=== PATIENT | male | born 1960 | race Caucasian/White ===

== ENCOUNTER → 2025-02-14 07:26 | Outpatient (REF) | payer BC, SELFPAY ==
[2025-02-14 08:21] LABS: % Basophils 0.3 % (0-2); % Eosinophils 3.1 % (0-6); % Immature Granulocytes 0.2 % (0-0.5); % Lymphocytes 15.9 % (20.5-51.1); % Monocytes 9.1 % (1.7-9.3); % Neutrophils 71.4 % (42.2-75.2); Absolute Eosinophils 0.3 10^3/uL (0-0.7); Absolute Lymphocytes 1.4 10^3/uL (1.2-3.4); Absolute Monocytes 0.8 10^3/uL (0.1-0.6); Absolute Neutrophils 6.4 10^3/uL (1.4-6.5); Hematocrit 46.7 % (39.0-52.0); Hemoglobin 16.2 g/dL (13.0-18.0); Mean Corp Hgb Conc. 34.7 g/dL (33.0-37.0); Mean Corpuscular Hgb 32.5 pg (27.0-31.0); Mean Corpuscular Volume 93.8 fL (80.0-94.0); Mean Platelet Volume 9.5 fL (7.4-10.4); Nucleated Red Blood Cells % 0 % (-); Platelet Count 217 10^3/uL (130-400); Red Blood Cell Count 4.98 10^6/uL (4.70-6.10); Red Cell Dist. Width 11.8 % (11.5-14.5)
[2025-02-14 08:52] LABS: Blood Urea Nitrogen 31 mg/dl (9-20); Calcium 9.6 mg/dl (8.4-10.2); Carbon Dioxide 24 mmol/L (22-30); Chloride 109 mmol/L (98-107); Glucose 104 mg/dl (70-99); Potassium 4.7 mmol/L (3.5-5.1); Sodium 141 mmol/L (135-145); eGFR > 60.00
== END ==
LOC: RCS 07:26
PROVIDERS: ATTENDING PHYSICIAN Orthopaedic Surgery; FAMILY PHYSICIAN Family Medicine
DX: Z01.818 Encounter for other preprocedural examination (principal)
CPT/HCPCS: 36415; 80048; 85025; 93005

== ENCOUNTER 2025-03-21 21:19 | Inpatient (IN) | payer BC, SELFPAY ==
[2025-03-21 14:49] VITALS: BP 121/73
--- NOTE | 2025-03-21 17:54 | ED.GENMED ---
History of Present Illness
General
Chief Complaint: Abdominal Symptoms
Source: patient and spouse
Time Seen by Provider: 03/21/25 17:46
History of Present Illness
History of Present Illness:
65-year-old male with past medical history of recent right total hip replacement this past Sunday with Dr. Alcaraz presenting to the emergency department for evaluation of generalized abdominal discomfort, bloating, belching and distention that has
been gradually worsening over the last 48 hours. Patient had initially been on oxycodone for pain control but stopped taking this on Sunday but notes he had been using MiraLAX to prevent constipation. Patient states he has passed a few small
stools but none really since Sunday. He denies any fevers, chills, rigors, vomiting, urinary symptoms or any other concerns. No known history of abdominal or GI pathology. No surgical history on his abdomen.
Past History
Past History
ED Past Medical History: None
ED Past Surgical History: Orthopedic
Social History
Tobacco: Non-smoker
Alcohol: Occasional
Drug: None
Personal:
Living: with family
Employment: Employed
Review of Systems
Review of Systems
All Other Systems: ROS reviewed and negative except as documented in HPI and ROS
Phy Exam
Physical Exam
Physical Exam:
GENERAL: Alert , in no apparent distress but does appear uncomfortable
EYE: clear conjunctiva b/l
HEAD: NCAT
ENT: o/p clr, mmm.
CARDIAC: Regular rate and rhythm .
LUNGS: Clear breath sounds bilaterally, no acute respiratory distress, no wheezes/rales/rhonchi
ABDOMEN: Firm, distended, no focal tenderness but there is generalized tenderness throughout the entirety of the abdomen, more hypoactive bowel sounds, no r/g, no cvat
NEUROLOGICAL: Alert and oriented
SKIN: Warm and dry, skin intact.
MUSCULOSKELETAL: No edema, well perfused.
PSYCH: Normal and appropriate interaction.
Scores
Heart Failure Risk
Heart Failure Risk Score: Not Applicable
Heart Score for Chest Pain Patients
STEMI patient?: Not applicable
Withdrawal Assessment of Alcohol
Withdrawal Assessment Completed?: Not applicable
Course
Orders/Labs/Results
Orders:
Orders
03/21/25 17:53
CT Abd/pelvis W Iv Cont Urgent
Comment:
Reason For Exam: generalized abd pain/bloating, recent right THR
03/21/25 18:24
Complete Blood Count/With Diff Urgent
Comprehensive Metabolic Panel Urgent
Lipase Urgent
Magnesium Urgent
Comment: ADD ON
03/21/25 18:56
0.9% Sodium Chloride 1000 ml [Nss] 1,000 ml IV BOLUS
HYDROmorphone [Dilaudid] 0.5 mg IV NOW STA
03/21/25 20:53
Urinalysis Reflex To Culture Urgent
Date Specimen was Collected: 03/21/25
Time Specimen was Collected: 18:17
Abnormal Lab Results
03/21/25
18:24
WBC 12.7 H 10^3/uL
(4.8-10.8)
RBC 4.66 L 10^6/uL
(4.70-6.10)
MCH 32.8 H pg
(27.0-31.0)
Abs Immat Gran (auto) 0.1 H 10^3/uL
(0-0.05)
Absolute Neuts (auto) 9.6 H 10^3/uL
(1.4-6.5)
Absolute Monos (auto) 1.1 H 10^3/uL
(0.1-0.6)
Immature Gran % 0.7 H %
(0-0.5)
Neutrophils % 75.4 H %
(42.2-75.2)
Lymphocytes % 14.2 L %
(20.5-51.1)
BUN 30 H mg/dl
(9-20)
Lipase 1972 H* U/L
(23-300)
03/21/25 18:24
03/21/25 18:24
Vital Signs
Initial and Last Documented VS:
Initial Vital Signs
Temp Pulse Resp BP Pulse Ox
98.0 F 70 18 121/73 99
03/21/25 14:49 03/21/25 14:49 03/21/25 14:49 03/21/25 14:49 03/21/25 14:49
Last Documented Vital Signs
Temp Pulse Resp BP Pulse Ox
97.6 F 59 27 136/71 100
03/21/25 18:31 03/21/25 18:45 03/21/25 18:45 03/21/25 18:31 03/21/25 18:45
MDM/Problems Addressed
Differential Diagnosis Includes:
Constipation secondary to recent surgery/opiates for pain control, bowel obstruction, diverticulitis, appendicitis, other acute surgical abdomen
MDM/Problems Addressed:
65-year-old male presenting to the ER for evaluation of generalized abdominal discomfort, bloating and difficulty passing stool over the last 48 hours. Patient's abdomen is firm and distended. He does appear uncomfortable. Will check labs, CT
imaging. Patient declining any medications at this time. Disposition pending.
*Radiology
Radiology exam reviewed: radiology read reviewed
*Pulse Oximetry
Patient hypoxic: no
*Critical Care Note
Total Time (30-74mins, 75-104mins- exclusive of procedures): Not Applicable
Comment
Comment:
6:45 PM: Patient's lipase severely elevated at over 1900. I went to reassess the patient and discussed these results with him and patient noted he was really starting to feel uncomfortable in his abdomen. I reviewed these results and discussed
with patient possibilities of causes of pancreatitis. Will treat with Dilaudid for pain control and start IV fluids. Pending CT scan. Patient to be admitted.
Patient Management
Discussion with other providers: Hospitalist
Escalation/DeEscalation of care consider admission/obs:
CT scan shows the following:
IMPRESSION: Diffuse thickening and increased enhancement of the wall the duodenum from the duodenal bulb or the mid third portion, as well as stranding of the adjacent fat. Findings are felt to likely represent duodenitis. See above discussion.
Large obstructing left ureteropelvic junction calculus with left pelvicalyceal dilation and delay in excretion of contrast. 4 mm nephrolith within the posterior lower pole of the left kidney.
Central parapelvic cysts involving the right kidney. No evidence for right ureteral calculus.
Colonic diverticula with no CT evidence for diverticulitis.
Hospitalist team was notified and accepts for continued evaluation and treatment. They will consult with urology as needed but I do suspect patient's symptoms are more likely related to the pancreatitis/duodenitis seen on CT scan.
ED Attending Note
-
Portions of this chart may have been created with voice recognition software.� Occasional wrong word or��sound alike� substitutions may have occurred due to the inherent limitations of voice recognition software.
Discharge Plan
Departure
Patient Disposition: Admit
Date of Disposition: 03/21/25
Time of Disposition: 20:06
Presentation/result/management discussed w/ accepting MD/DO: Hospitalist
Discharge Problem:
Acute pancreatitis, Obstruction of left ureteropelvic junction (UPJ) due to stone
Prescriptions:
No Action
acetaminophen [Tylenol] 325 mg Tablet
650 mg PO Q6HPRN PRN (Reason: mild pain)
polyethylene glycol 3350 [Miralax] 17 gram Powder In Packet
17 g PO BID
aspirin 325 mg Tablet
325 mg PO DAILY
Rx Instructions:
for 30 days starting 03.16.25
magnesium hydroxide [Milk of Magnesia] 400 mg/5 mL Suspension
1,200 mg PO DAILYPRN PRN (Reason: constipation)
celecoxib [Celebrex] 100 mg Capsule
100 mg PO BID
Gas-X 250 mg Capsule
250 mg PO BIDPRN PRN (Reason: gas pains)
Referrals:
Florian Medina MD [Family Provider] -
Interventions
Interventions:
*Risk Screen - Suicide Last Done: 03/21/25 18:31
*General Assessment Last Done: 03/21/25 14:49
*Neglect/Abuse Screening Last Done: 03/21/25 18:31
*ED- Fall Risk Assessment Last Done: 03/21/25 18:31
*ED COVID-19 Vaccine History Last Done: 03/21/25 14:49
AZ-Qojqbd-Uqdidycula Assessment Last Done: 03/21/25 18:31
Discharge Date and Time
Print Language: AMHARIC
[2025-03-21 18:25] VITALS: BMI 29.0
[2025-03-21 18:29] LABS: % Basophils 0.2 % (0-2); % Eosinophils 0.5 % (0-6); % Immature Granulocytes 0.7 % (0-0.5); % Lymphocytes 14.2 % (20.5-51.1); % Neutrophils 75.4 % (42.2-75.2); Absolute Eosinophils 0.1 10^3/uL (0-0.7); Absolute Immature Granulocytes 0.1 10^3/uL (0-0.05); Absolute Lymphocytes 1.8 10^3/uL (1.2-3.4); Absolute Monocytes 1.1 10^3/uL (0.1-0.6); Absolute Neutrophils 9.6 10^3/uL (1.4-6.5); Hematocrit 42.4 % (39.0-52.0); Hemoglobin 15.3 g/dL (13.0-18.0); Mean Corp Hgb Conc. 36.1 g/dL (33.0-37.0); Mean Corpuscular Hgb 32.8 pg (27.0-31.0); Mean Platelet Volume 9.5 fL (7.4-10.4); Nucleated Red Blood Cells % 0 % (-); Platelet Count 210 10^3/uL (130-400); Red Blood Cell Count 4.66 10^6/uL (4.70-6.10); White Blood Cell Count 12.7 10^3/uL (4.8-10.8)
[2025-03-21 18:31] VITALS: BP 136/71
[2025-03-21 18:51] LABS: ALT (SGPT) 33 U/L (0-50); AST (SGOT) 26 U/L (17-59); Albumin 3.7 g/dl (3.5-5.0); Alkaline Phosphatase 56 U/L (38-126); Blood Urea Nitrogen 30 mg/dl (9-20); Calcium 9.1 mg/dl (8.4-10.2); Carbon Dioxide 26 mmol/L (22-30); Chloride 107 mmol/L (98-107); Estimated Creatinine Clearance 78 ml/min; Glucose 98 mg/dl (70-99); Lipase 1972 U/L (23-300); Potassium 3.8 mmol/L (3.5-5.1); Sodium 138 mmol/L (135-145); Total Bilirubin 1.1 mg/dl (0.2-1.3); Total Protein 6.4 g/dl (6.3-8.2); eGFR > 60.00
[2025-03-21 19:18] VITALS: BP 145/81
--- NOTE | 2025-03-21 19:30 | EDRN ---
Report received, introduced myself to patient once back from CT, patient needing to use restroom, ambulated into bathroom to use commode back in bed and medicated for pain.
[2025-03-21] MEDS: DILAUDID 0.5 MG IV ×2 (19:38→23:15)
[2025-03-21] MEDS: NSS 1000 IV (19:39)
[2025-03-21 20:00] VITALS: BP 130/85
[2025-03-21 20:34] LABS: Magnesium 2.2 mg/dl (1.6-2.3)
--- NOTE | 2025-03-21 20:42 | HPS.HSE ---
Family Physician
-
Family Physician: Florian Medina
Chief Complaint
-
Abdominal pain
History of Present Illness
This is a 65-year-old with history of status post total hip arthroplasty postop day #5 who presents to the emergency department with abdominal pain and bloating.
Patient underwent right total hip arthroplasty Eric 5 days ago. There was no complication. Status post procedure the patient reported that he was unable to tolerate p.o. but then developed some nausea and a feeling of abdominal distention and
gas and bloating. He reported that he had some tenderness that is worse with movement and is starting to radiate to the back today. Denies any vomiting. He denies any changes in his bowel call or and he denies any hematochezia.
Patient denies any flank pain. He denies any dysuria or hematuria. He denies having any fevers or chills.
Patient reported that since the procedure he has been taking 325 of aspirin daily as well as Celebrex twice daily. He has since stopped taking oxycodone several days ago. Patient reports history of alcohol use drinking whiskey daily. He stated
that he stopped alcohol about 2 weeks ago due to his upcoming surgery. He denies having any withdrawal symptoms and no history of withdrawal.
Patient denies history of gallstones. He denies history of prior pancreatitis.
In the emergency department he was afebrile, blood pressure was 156/71 with a pulse of 59 and was satting 98% on room air. His CBC shows a white count of 12.7 but otherwise unremarkable. Electrolytes were all within normal limits. BUN and
creatinine were normal. His LFTs were normal. Lipase was elevated at 1972. UA is pending.
A CT of the abdomen pelvis showed diffuse thickening and increased enhancement of the wall of the duodenum from the bulb to the midportion as well as stranding of the adjacent fat. He also has a large obstructing left ureteropelvic junction
calculus with left pelvicalyceal dilation and delayed extrusion of contrast. There is also a 4 mm nephrolith within the posterior lower pole of the left kidney.
Medical History
Past Medical History
Past Medical History: Reports None
Past Surgical History: Reports Orthopedic (Right total hip arthroplasty 03/16/2025)
Social History
Tobacco: Non-smoker
Alcohol: Daily (Last drink was 2 weeks ago)
Drug: None
Personal:
Living: With Family
Family History
Family History: Not pertinent
Allergies / Home Medications
Allergies reflects when Allergies were last updated in [employer].
Home Medications with original date entered in [facility]
Allergy/Medication List:
Allergies
Allergy/AdvReac Type Severity Reaction Status Date / Time
No Known Allergies Allergy Verified 03/21/25 14:48
Home Medications
acetaminophen 325 mg tablet (Tylenol) 650 mg PO Q6HPRN PRN mild pain 03/21/25
aspirin 325 mg tablet 325 mg PO DAILY 03/21/25
celecoxib 100 mg capsule (Celebrex) 100 mg PO BID 03/21/25
magnesium hydroxide 400 mg/5 mL oral suspension (Milk of Magnesia) 1,200 mg PO DAILYPRN PRN constipation 03/21/25
polyethylene glycol 3350 17 gram oral powder packet (Miralax) 17 g PO BID 03/21/25
simethicone 250 mg capsule (Gas-X) 250 mg PO BIDPRN PRN gas pains 03/21/25
Review of Systems
-
Constitutional: Reports No Symptoms
EENT: Reports No Symptoms
Respiratory: Reports No Symptoms
Cardiac: Reports No Symptoms
Abdomen/GI: Reports Abdominal Pain and Constipated
: Reports No Symptoms
Musculoskeletal: Reports No Symptoms
Skin: Reports No Symptoms
Neurological: Reports No Symptoms
Endocrine: Reports No Symptoms
Hematologic/Lymphatic: Reports No Symptoms
Psych: Reports No Symptoms
Physical Exam
Vital Signs
Vital Signs
Temp Pulse Resp BP Pulse Ox
97.6 F 59 27 136/71 100
03/21/25 18:31 03/21/25 18:45 03/21/25 18:45 03/21/25 18:31 03/21/25 18:45
Physical Exam
General: Well Developed, Well Nourished, No Apparent Distress and Comfortable
HEENT: NormoCephalic, Anicteric and Moist mucous membranes
Respiratory: Clear
Cardiac: S1/S2 and Regular Rhythm
Breast: Deferred by me
GI: Non Distended, Normal Bowel Sounds and Tender
Rectal: Deferred by Provider
Genito-urinary: Deferred by me
Musculoskeletal: No Clubbing, No Cyanosis and No Edema
Skin: Warm
Neuro: AO x 3 and Nonfocal/grossly intact
Hematologic/Lymphatic: No Lymphadenopathy
Laboratory Results
-
03/21/25 18:24
03/21/25 18:24
Laboratory Results
Total Bilirubin 1.1 mg/dl (0.2-1.3) 03/21/25 18:24
AST 26 U/L (17-59) 03/21/25 18:24
ALT 33 U/L (0-50) 03/21/25 18:24
Alkaline Phosphatase 56 U/L (38-126) 03/21/25 18:24
Lipase 1972 U/L (23-300) H* 03/21/25 18:24
Data Reviewed
-
CT Scan: Report Reviewed by me
Lab Data: Labs Reviewed by me
Old Records: Reviewed
Impression/Plan
-
IMPRESSION:
65 y.o POD 5 s/p R JACLYN presenting with abdominal pain and found to have pancreatitis on labs with elevated lipase of 1950. CT scan shows no complication of pancreatitis. There was no gall-stone or biliary dilation mentioned. The liver enzymes
were normal. Significant thickening and enhancement of the wall of the duodenum as well as stranding of the adjacent fat likely representing duodenitis. HD stable and afebrile.
PLAN:
1. Pancreatitis - H/O etoh use but not recently. No gall stones, normal lfts and nor biliary ductal dilation to suggest galls tone pancreatitis. Question about contigous spread of inflammation from duodenitis to pancreas. Well appearing,
non-toxic and stable.
- admit to med/surg
- npo with sips of clears and ice chips
- IV fluids with LR at 150ml/hr
- pain control and antiemetics
- given lack of etiology and possible role of duodenitis will consult GI
2. Duodenitis - Suspect secondary to ASA 325 + LEVINE II inh with underlying etoh use. No obvious bleeding or ulcer.
- NPO as above
- PPI IV bid for now
- will hold asa 325, and use lovenox for dvt ppx while in patient
- hold levine II inhibition for now
- GI consult
3. s/p JACLYN - stable.
4. Left obstructing kidney stone - Per CT scan large stone in left upj 6x6x11 with delay in excretion of contrast. No flank pain. No groin pain, no fevers or chills. Suspect chronically obstructing stone.
- u/a pending
- d/w urology and willing to see him inpatient
- surgery will not be offered and tamsulosin without value.
DVT PPX - lovenox sq
Code status - Full Code
[2025-03-21 21:00] VITALS: BP 140/80
[2025-03-21] MEDS: PROTONIX IV 40 MG IV (21:24)
[2025-03-21] MEDS: NSS (PRESERVATIVE FREE) 10 ML IV (21:24)
[2025-03-21 21:43] LABS: Urine Albumin 1+ (Neg - Trace); Urine Bilirubin Negative (Negative); Urine Character Clear (Clear); Urine Color Yellow; Urine Glucose Negative (Negative); Urine Ketone 2+ (Negative); Urine Leukocyte Negative (Negative); Urine Nitrite Negative (Negative); Urine Occult Blood 1+ (Negative); Urine Specific Gravity 1.015 (<1.030); Urine Urobilinogen Negative (Neg - 1+)
[2025-03-21 21:54] LABS: Urine Squamous Cell 0-2 /LPF (Few)
[2025-03-21 21:55] LABS: Urine White Cell 0-2 /HPF (0-5)
[2025-03-21 22:26] VITALS: BP 158/81; BMI 28.4
[2025-03-21] MEDS: LR 1000 IV (23:23)
[2025-03-22] MEDS: DILAUDID 0.5 MG IV ×4 (03:17→23:21)
[2025-03-22] MEDS: LR 1000 IV ×3 (05:28→23:21)
[2025-03-22 07:09] LABS: Hematocrit 40.9 % (39.0-52.0); Hemoglobin 14.3 g/dL (13.0-18.0); Mean Corpuscular Volume 94.5 fL (80.0-94.0); Platelet Count 205 10^3/uL (130-400); Red Blood Cell Count 4.33 10^6/uL (4.70-6.10); Red Cell Dist. Width 12.1 % (11.5-14.5); White Blood Cell Count 11.6 10^3/uL (4.8-10.8)
--- NOTE | 2025-03-22 07:32 | CON.GI ---
Consultation
-
Date/Time Consultation Requested: 03/22/25
Date/Time Consultation Performed: 03/22/25
Requesting Provider:
Performing Provider:
Reason for Consultation: Abdominal discomfort, bloating
Medical History
Chief Complaint / HPI
Chief Complaint: Abdominal bloating
History of Present Illness:
65-year-old male who underwent total right hip replacement last Sunday presenting with complaints of abdominal discomfort, bloating going on in the last couple of days. As per patient, he had no prior history of GI symptoms, no history of acid
reflux, no PPI use, occasional constipation taking MiraLAX but otherwise has regular bowel movements. After his right hip replacement last Sunday, he took oxycodone and MiraLAX to prevent constipation, he took oxycodone again on Sunday every 6
hours and stopped. In the last couple of days he reports that he feels sensation of bloating, uncomfortable sensation in the upper abdomen with some belching and gassiness. No abdominal pain, nausea or vomiting. No heartburn or trouble
swallowing. He did have a bowel movement yesterday but not this morning. Prior to surgery, he took Aleve maybe 2 tablets a week but not on a regular basis. He is on aspirin 325 mg and he was also put on steroids, he does not recall what exactly
is the medication he took. He has been taking Celebrex 1 tablet twice a day since after surgery. No previous history of ulcer disease. No history of pancreatitis. In the emergency room, mild leukocytosis noted with white count of 12.7, BUN
slightly elevated at 30 with normal creatinine and lipase noted to be 1972. CT scan of the abdomen pelvis with IV contrast only showed diffuse thickening and increased enhancement of wall of the duodenum from the bulb through the mid third portion,
significant stranding of surrounding fat noted suggesting duodenitis, no evidence of pancreatitis noted. No gallstones. Also noted was an obstructing left ureteropelvic junction calculus with moderate to severe distention of the left renal pelvis
and calyces.
Colonoscopy in [address] Acuna for adenomatous polyps, diverticulosis noted.
Colonoscopy in 2012 showing tubular adenomas in the transverse colon, descending colon and sigmoid colon.
Past Medical History
Past Medical History: None
Past Surgical History: Orthopedic (Right hip replacement.)
Social History
Tobacco: Non-Smoker
Alcohol: Daily
Family History
Family History: Reviewed & Not Pertinent
Allergies / Home Medications
Allergy/AdvReac Type Severity Reaction Status Date / Time
No Known Allergies Allergy Verified 03/21/25 14:48
�Medication �Instructions �Recorded
acetaminophen 325 mg tablet 650 mg PO Q6HPRN PRN mild pain 03/21/25
(Tylenol)
aspirin 325 mg tablet 325 mg PO DAILY 03/21/25
celecoxib 100 mg capsule (Celebrex) 100 mg PO BID 03/21/25
magnesium hydroxide 400 mg/5 mL 1,200 mg PO DAILYPRN PRN 03/21/25
oral suspension (Milk of Magnesia) constipation
polyethylene glycol 3350 17 gram 17 g PO BID 03/21/25
oral powder packet (Miralax)
simethicone 250 mg capsule (Gas-X) 250 mg PO BIDPRN PRN gas pains 03/21/25
Review of Systems
-
All other systems: A 12 pt ROS was Negative except as stated above in HPI
Vital Signs
Temp Pulse Resp BP Pulse Ox
98.1 F 74 18 158/81 97
03/21/25 22:26 03/21/25 22:26 03/21/25 22:26 03/21/25 22:26 03/21/25 22:26
Physical Exam
Exam
Respiratory: Clear
Cardiac: S1/S2 and Regular Rhythm
GI: Soft and Non Distended (Some discomfort on palpation in the mid/upper abdomen, bowel sounds decreased.)
Neuro: AO x 3
Results
WBC 11.6 10^3/uL (4.8-10.8) H 03/22/25 06:00
Hgb 14.3 g/dL (13.0-18.0) 03/22/25 06:00
Hct 40.9 % (39.0-52.0) 03/22/25 06:00
MCV 94.5 fL (80.0-94.0) H 03/22/25 06:00
Plt Count 205 10^3/uL (130-400) 03/22/25 06:00
Absolute Neuts (auto) 9.6 10^3/uL (1.4-6.5) H 03/21/25 18:24
Sodium 138 mmol/L (135-145) 03/21/25 18:24
Potassium 3.8 mmol/L (3.5-5.1) 03/21/25 18:24
Chloride 107 mmol/L (98-107) 03/21/25 18:24
Carbon Dioxide 26 mmol/L (22-30) 03/21/25 18:24
BUN 30 mg/dl (9-20) H 03/21/25 18:24
Creatinine 1.0 mg/dL (0.7-1.3) 03/21/25 18:24
Calcium 9.1 mg/dl (8.4-10.2) 03/21/25 18:24
Total Bilirubin 1.1 mg/dl (0.2-1.3) 03/21/25 18:24
AST 26 U/L (17-59) 03/21/25 18:24
ALT 33 U/L (0-50) 03/21/25 18:24
Alkaline Phosphatase 56 U/L (38-126) 03/21/25 18:24
Lipase 1972 U/L (23-300) H* 03/21/25 18:24
Diagnostic Image Results:
Prior GI Procedures:
EGD:
Colonoscopy:
Assessment / Plan
-
65-year-old male with recent right hip total replacement presenting with complaints of abdominal discomfort and bloating in the last couple of days, blood work showing elevated lipase, normal LFTs, CT scan of the abdomen pelvis showing duodenitis
and also obstructing left ureteropelvic stone. No evidence of pancreatitis noted. History of using aspirin and steroids, Celebrex but not other NSAIDs. No previous history of ulcer disease.
-Abdominal discomfort and bloating,associated with duodenitis on CT scan
Could be related to Combination of aspirin, steroids and Celebrex
Okay to start clear liquid diet without reds and if feeling better, will advance as tolerated
Agree with Protonix IV twice daily for now and can switch to oral Protonix if he tolerates p.o.
Avoid NSAIDs
Currently avoiding narcotics, if he does use narcotics, okay to start MiraLAX at that time.
Eventual upper endoscopy to evaluate for duodenitis prior to discharge.
- Left kidney stone could be contributing to the abdominal discomfort and bloating as well.
Further management per hospitalist team/urology.
Will follow-up
-
-
Thank you for consultation and allowing me to participate in the patient's care. Please call the international representative GI physician during the after hours with any questions or concerns.
[2025-03-22 07:40] LABS: ALT (SGPT) 26 U/L (0-50); AST (SGOT) 20 U/L (17-59); Albumin 3.3 g/dl (3.5-5.0); Alkaline Phosphatase 52 U/L (38-126); Blood Urea Nitrogen 25 mg/dl (9-20); Calcium 8.8 mg/dl (8.4-10.2); Carbon Dioxide 27 mmol/L (22-30); Chloride 108 mmol/L (98-107); Direct Bilirubin 0.1 mg/dl (0.0-0.4); Estimated Creatinine Clearance 78 ml/min; Glucose 79 mg/dl (70-99); Potassium 4.5 mmol/L (3.5-5.1); Sodium 139 mmol/L (135-145); Total Bilirubin 0.9 mg/dl (0.2-1.3); Total Protein 5.8 g/dl (6.3-8.2); Triglycerides 104 mg/dl (10-149); eGFR > 60.00
[2025-03-22 08:02] VITALS: BP 125/75
[2025-03-22] MEDS: MIRALAX 17 GRAMS PO ×2 (08:12→21:40)
[2025-03-22] MEDS: NSS (PRESERVATIVE FREE) 10 ML IV ×2 (08:13→21:41)
[2025-03-22] MEDS: PROTONIX IV 40 MG IV ×2 (08:13→21:41)
[2025-03-22] MEDS: FLUSH (NSS) 1 FLUSH IV ×2 (08:13→14:59)
[2025-03-22 09:45] LABS: Lipase 1350 U/L (23-300)
--- NOTE | 2025-03-22 10:18 | CM ---
Met with patient at bedside; initial assessment completed
Pharmacy verified: [facility], [address], [place]
Lives with ; multilevel home; 4 steps to enter (no railing); 13 steps between floors (railing present); 2nd floor bath has tub w/shower
PLOF: independent at baseline; s/p post hip replacement; assisting with ADLs if needed; ambulating with rolling walker; will transition to cane when indicated; driving restriction;
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
No other DME
No history of SNF utilization; recent home health w/ [facility]
will drive home
Plan: Discharge to home when medically stable; will continue with outpatient PT as directed
--- NOTE | 2025-03-22 14:44 | W.PN.HOSP.TC ---
Today's Communication/Plan
-
Clears
Continue IV fluids
Urology evaluation
Straight cath
Start Flomax
Assessment / Plan
Assessment / Plan
65-year-old with abdominal pain. Underwent. Right total hip arthroplasty 5 days prior to admission
CT abdomen and pelvis-diffuse thickening and increased enhancement of the wall of the duodenum from the duodenal bulb or the mid third portion as well as stranding of the adjacent fat. Findings are felt to represent duodenitis. Large obstructing
left ureteropelvic junction calculus with left pelvicalyceal dilatation [place] excretion of the contrast. 6 mm x 11 mm. 4 mm nephrolith in the posterior lower pole of the left kidney. Central parapelvic cyst involving the right kidney. Colonic
diverticula
Abdomen feels bloated
Cardiovascular system S1-S2 appreciated
Chest clear to auscultation
Abdomen distended
Epigastric tenderness
Bladder distended
Bowel sounds present
No pedal edema
Right hip with mild ecchymosis around
# Acute pancreatitis
History of alcohol use but none in the past 2 weeks
No gallstones. Normal LFTs and no biliary ductal dilatation,Inflammation in the duodenum on CT
Keep n.p.o. with IV fluids
Follow lipase
Follow clinically
GI evaluation
# Duodenitis
Likely secondary to NSAID use aspirin and Celebrex
Keep n.p.o.
PPI
Hold NSAIDs and aspirin
# Urinary retention
Mild to moderate enlargement of the prostate gland
Start Flomax
Urology consulted
# Total hip arthroplasty right side
Mild ecchymosis at site
Did make [facility] orthopedics aware.
PT OT
# Left obstructing kidney stone
IV fluids
Urology evaluation-May need cystoscopy ureteroscopy
# Diverticulosis sigmoid and descending colon
# DVT prophylaxis-Lovenox
# Full code
D/W RN
Notified Urology
D/W at bed side
Part of this note was created using voice recognition system. Occasional wrong word or��sound alike� substitutions may have inadvertently occurred due to the inherent limitations of voice recognition software. If noted kindly bring it to my
attention for correction.
Anticipated Discharge: 24 - 48 hours
Subjective/Interval History
-
Date of Service: March 22, 2025
Objective Data
-
Labs:
Laboratory Results
03/22/25
06:00
WBC 11.6 H
Hgb 14.3
Hct 40.9
Plt Count 205
Sodium 139
Potassium 4.5
Chloride 108 H
Carbon Dioxide 27
BUN 25 H
Creatinine 1.0
Glucose 79
Calcium 8.8
Total Bilirubin 0.9
AST 20
ALT 26
Alkaline Phosphatase 52
Vital Signs:
Vital Signs
Temp Pulse Resp BP Pulse Ox
98 F 60 21 125/75 96
03/22/25 08:02 03/22/25 08:02 03/22/25 08:02 03/22/25 08:02 03/22/25 09:50
I&O
03/21/25 03/22/25 03/23/25
06:59 06:59 06:59
Output Total 1200 / 1200 500 / 500
Balance -1200 / -1200 -500 / -500
[2025-03-22] MEDS: FLOMAX 0.4 MG PO ×2 (14:58→21:42)
[2025-03-22 15:40] VITALS: BP 122/69
[2025-03-22] MEDS: LOVENOX 40 MG SC (17:00)
[2025-03-22 23:05] VITALS: BP 129/81
--- NOTE | 2025-03-22 23:55 | PTCARENOTE ---
Patient reported feeling pressure and fullness around bladder at start of shift. This RN catheterized patient for 700ml of jaqueline urine. Patient called this RN to room around 2230 to report the same sensation. Bladder scan performed which showed
>400ml. EDWARD Pollard notified of patient needing multiple straight caths throughout the day. Flomax started. Urology consulted. EDWARD gave order to place Garzon catheter. This RN inserted indwelling catheter and immediately 600ml of jaqueline urine
drained. Patient c/o pain at penis r/t repeated cath insertion. Pain medication given as ordered. Will continue to monitor.
[2025-03-23 06:41] LABS: Hematocrit 42.3 % (39.0-52.0); Hemoglobin 14.8 g/dL (13.0-18.0); Mean Corpuscular Hgb 33.2 pg (27.0-31.0); Mean Corpuscular Volume 94.8 fL (80.0-94.0); Mean Platelet Volume 9.5 fL (7.4-10.4); Platelet Count 217 10^3/uL (130-400); Red Blood Cell Count 4.46 10^6/uL (4.70-6.10); Red Cell Dist. Width 11.9 % (11.5-14.5); White Blood Cell Count 9.5 10^3/uL (4.8-10.8)
[2025-03-23 07:00] LABS: ALT (SGPT) 24 U/L (0-50); AST (SGOT) 22 U/L (17-59); Albumin 3.4 g/dl (3.5-5.0); Alkaline Phosphatase 58 U/L (38-126); Blood Urea Nitrogen 19 mg/dl (9-20); Calcium 9.1 mg/dl (8.4-10.2); Carbon Dioxide 28 mmol/L (22-30); Chloride 107 mmol/L (98-107); Direct Bilirubin 0.1 mg/dl (0.0-0.4); Estimated Creatinine Clearance 87 ml/min; Glucose 78 mg/dl (70-99); Lipase 595 U/L (23-300); Potassium 4.6 mmol/L (3.5-5.1); Sodium 139 mmol/L (135-145); Total Bilirubin 1.1 mg/dl (0.2-1.3); Total Protein 5.9 g/dl (6.3-8.2); eGFR > 60.00
[2025-03-23 07:05] VITALS: BP 116/74
--- NOTE | 2025-03-23 08:02 | W.PN.UPDATE ---
Update Note
Progress Note Update
Patient of Dr. Alcaraz. Had Right JACLYN this past Sunday. 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 Was instructed on home treatment, including softeners, fleets, etc. If no BM and pain worsening he was advised to
go to the ER. Upon presentation he was found to have pancreatitis, duodenitis, and a kidney stone. He has been admitted to the Hospitalist with GI and urology consults. Still uncomfortable, but better than yesterday. Appreciate the efforts of the
medical team. Regarding the hip- Dressing in place, and should remain. THPs in place. May be OOB ad lid if OK with medicine. PT/OT could be beneficial while admitted, if deemed appropriate. ASA and Celebrex were D/c. Lovenox OK for now for DVT ppx.
Will follow along peripherally.
[2025-03-23] MEDS: LR 1000 IV ×2 (09:41→22:52)
[2025-03-23] MEDS: ZOSYN 50 IV ×3 (09:42→21:59)
[2025-03-23] MEDS: NSS (PRESERVATIVE FREE) 10 ML IV ×2 (09:48→21:57)
--- NOTE | 2025-03-23 09:48 | CONS.URO ---
Consultation
-
Date/Time Consultation Performed: 03/23/25 0950
Performing Provider: Sudhakar
Reason for Consultation: left ureteral stone
Medical History
History of Present Illness
65 yo male s/p Right total hip arthroplasty 03/16/2025
ED admission excerpt: 'This is a 65-year-old with history of status post total hip arthroplasty postop day #5 who presents to the emergency department with abdominal pain and bloating.'
Diagnosed with 'duodenitis'.
Has not been capable of volitional voiding -- several I&O caths then indwelling Garzon for volumes of 500 -700 ml
'I've always had to go alot, but never couldn't go..
Past Medical History
Past Medical History: None
Past Surgical History: Orthopedic
Family History
Family History: Reviewed & Not Pertinent
Allergies/Home Medications
Allergies
Allergy/AdvReac Type Severity Reaction Status Date / Time
No Known Allergies Allergy Verified 03/21/25 14:48
Home Medications
�Medication �Instructions �Recorded �Confirmed �Type
acetaminophen 325 mg tablet 650 mg PO Q6HPRN PRN mild pain 03/21/25 03/21/25 History
(Tylenol)
aspirin 325 mg tablet 325 mg PO DAILY 03/21/25 03/21/25 History
celecoxib 100 mg capsule (Celebrex) 100 mg PO BID 03/21/25 03/21/25 History
magnesium hydroxide 400 mg/5 mL 1,200 mg PO DAILYPRN PRN 03/21/25 03/21/25 History
oral suspension (Milk of Magnesia) constipation
polyethylene glycol 3350 17 gram 17 g PO BID 03/21/25 03/21/25 History
oral powder packet (Miralax)
simethicone 250 mg capsule (Gas-X) 250 mg PO BIDPRN PRN gas pains 03/21/25 03/21/25 History
Physical Exam
Vital Signs
Vital Signs
Temp Pulse Resp BP Pulse Ox
98.2 F 79 18 116/74 96
03/23/25 07:05 03/23/25 07:05 03/23/25 07:05 03/23/25 07:05 03/23/25 07:05
Lab / Testing Results
Laboratory Results
03/23/25 06:00
03/23/25 06:00
Physical Exam
General: Well Developed and No Apparent Distress
Genito-urinary: No Costovertebral Tend
Skin: Warm
Neuro: Awake, Alert and Oriented
Psych: Calm
Assessment / Plan
-
1. Left proximal ureteral stone -- 11 mm, chronically partially obstructing
2. Right renal parapelvic cysts
3. Prostatomegaly + comorbid conditions = urinary retention
Rec:
Tamsulosin/Finasteride
voiding trial after endoscopy; CIC if fails
left ureteroscopy for left renal stone is non-urgent -- could be offerred after GI issues resolved, possobly on 03/25 or later as an outpatient
Data Reviewed
-
CT Scan: Image personally visualized and interpreted
Lab Data: Labs Reviewed
Old Records: Reviewed
[2025-03-23] MEDS: MIRALAX 17 GRAMS PO ×2 (09:49→21:57)
[2025-03-23] MEDS: PROTONIX IV 40 MG IV ×2 (09:49→21:57)
--- NOTE | 2025-03-23 10:07 | W.PN.GI.CBS2 ---
Today's Communication / Plan
-
-Abdominal discomfort and bloating,associated with duodenitis on CT scan
Could be related to Combination of aspirin, steroids and Celebrex
Currently tolerating clear liquid diet .
Continue Protonix IV twice daily for now and can switch to oral Protonix if he tolerates p.o.
Avoid NSAIDs
MiraLAX 1 cap twice a day started, he did not take it yesterday but encouraged patient to start taking it to help move his bowels.
Upper endoscopy tomorrow
- Left kidney stone could be contributing to the abdominal discomfort and bloating as well.
Garzon catheter placed
Further management per hospitalist team/urology.
Will follow-up
Assessment / Plan
-
65-year-old male with recent right hip total replacement presenting with complaints of abdominal discomfort and bloating in the last couple of days, blood work showing elevated lipase, normal LFTs, CT scan of the abdomen pelvis showing duodenitis
and also obstructing left ureteropelvic stone. No evidence of pancreatitis noted. History of using aspirin and steroids, Celebrex but not other NSAIDs. No previous history of ulcer disease.
-Abdominal discomfort and bloating,associated with duodenitis on CT scan
Could be related to Combination of aspirin, steroids and Celebrex
Currently tolerating clear liquid diet .
Continue Protonix IV twice daily for now and can switch to oral Protonix if he tolerates p.o.
Avoid NSAIDs
MiraLAX 1 cap twice a day started, he did not take it yesterday but encouraged patient to start taking it to help move his bowels.
Upper endoscopy tomorrow
- Left kidney stone could be contributing to the abdominal discomfort and bloating as well.
Garzon catheter placed
Further management per hospitalist team/urology.
Will follow-up
Subjective
Subjective
Date of Service: March 23, 2025
Patient reports some discomfort in the upper abdomen but not significant. No nausea or vomiting. No bowel movements yet. No fevers or chills.
Objective
Data Reviewed
Laboratory Data:
Laboratory Results
03/23/25 06:00
03/23/25 06:00
Laboratory Results
Magnesium 2.2 mg/dl (1.6-2.3) 03/21/25 18:24
Total Bilirubin 1.1 mg/dl (0.2-1.3) 03/23/25 06:00
AST 22 U/L (17-59) 03/23/25 06:00
ALT 24 U/L (0-50) 03/23/25 06:00
Alkaline Phosphatase 58 U/L (38-126) 03/23/25 06:00
Lipase 595 U/L (23-300) H 03/23/25 06:00
Vital Signs and I&O:
Vital Signs
Temp Pulse Resp BP Pulse Ox
98.2 F 79 18 116/74 96
03/23/25 07:05 03/23/25 07:05 03/23/25 07:05 03/23/25 07:05 03/23/25 07:05
I&O
03/22/25 03/23/25 03/24/25
06:59 06:59 06:59
Intake Total 1380 / 1380
Output Total 1200 / 1200 3300 / 3300
Balance -1200 / -1200 -1920 / -1920
Physical Exam
Physical Exam
GI: Soft, Tender (Some discomfort on palpation of the upper abdomen) and Normal Bowel Sounds
--- NOTE | 2025-03-23 10:12 | W.PN.HOSP.TC ---
Today's Communication/Plan
-
EGD 03/24
GB US
empiric abx
Assessment / Plan
Assessment / Plan
65-year-old with abdominal pain. Underwent. Right total hip arthroplasty 5 days prior to admission
CT abdomen and pelvis-diffuse thickening and increased enhancement of the wall of the duodenum from the duodenal bulb or the mid third portion as well as stranding of the adjacent fat. Findings are felt to represent duodenitis. Large obstructing
left ureteropelvic junction calculus with left pelvicalyceal dilatation Dalian excretion of the contrast. 6 mm x 11 mm. 4 mm nephrolith in the posterior lower pole of the left kidney. Central parapelvic cyst involving the right kidney. Colonic
diverticula
# Acute pancreatitis
History of alcohol (1-2 per day generally) use but none in the past 2 weeks
No gallstones. Normal LFTs and no biliary ductal dilatation,Inflammation in the duodenum on CT
Keep n.p.o. with IV fluids
Follow lipase
Follow clinically
GI evaluation, discussed with Dr. Lackey, she would like pt to remain on clear liquids for now
empiric abx and will order GB US for completeness
# Duodenitis
Likely secondary to NSAID use aspirin and Celebrex
PPI
Hold NSAIDs and aspirin
GI plans EGD tomorrow
# Urinary retention
Mild to moderate enlargement of the prostate gland
Start Flomax, ortega placed
Urology consulted, input appreciated
# Total hip arthroplasty right side
Mild ecchymosis at site
Did make [facility] orthopedics aware.
PT OT
# Left obstructing kidney stone
IV fluids
Urology evaluation-May need cystoscopy ureteroscopy
as per Urology 11 mm, chronically partially obstructing, with ureteroscopy felt to be non-urgent
# Diverticulosis sigmoid and descending colon
# DVT prophylaxis-Lovenox
# Full code
D/W RN
Anticipated Discharge: 24 - 48 hours
Subjective/Interval History
-
Date of Service: March 23, 2025
abdominal pain better, but doesn't feel back to normal
Objective Data
-
Labs:
Laboratory Results
03/23/25
06:00
WBC 9.5
Hgb 14.8
Hct 42.3
Plt Count 217
Sodium 139
Potassium 4.6
Chloride 107
Carbon Dioxide 28
BUN 19
Creatinine 0.9
Glucose 78
Calcium 9.1
Total Bilirubin 1.1
AST 22
ALT 24
Alkaline Phosphatase 58
Vital Signs:
Vital Signs
Temp Pulse Resp BP Pulse Ox
98.2 F 79 18 116/74 96
03/23/25 07:05 03/23/25 07:05 03/23/25 07:05 03/23/25 07:05 03/23/25 07:05
I&O
03/22/25 03/23/25 03/24/25
06:59 06:59 06:59
Intake Total 1380 / 1380
Output Total 1200 / 1200 3300 / 3300
Balance -1200 / -1200 -1920 / -1920
Review of Systems
-
History Source: Patient and Coordinated Provider (reviewed with ORTEGA Chávez)
Constitutional: Denies Fever
EENT: Reports No Symptoms Reported
Respiratory: Reports No Symptoms; Denies Trouble Breathing
Cardiac: Reports No Symptoms; Denies Chest Pain
Abdomen/GI: Reports Abdominal Pain (markedly reduced past 24 hrs)
Musculoskeletal: Reports Joint Pain (post op Rt JACLYN 03/16)
Neuro: Reports No Symptoms
Physical Exam
-
General: Well Developed, Well Nourished and No Apparent Distress
HEENT: Normocephalic, Atraumatic and Moist Mucous Membranes
Respiratory: Clear to Auscultation; Negative Wheezes, Rales or Rhonchi
Cardiac: Regular Rhythm and S1/S2
GI: Soft, Nontender (to light pressure) and Normal Bowel Sounds
Musculoskeletal: No Clubbing, No Cyanosis and No Edema
Neuro: Awake, Alert and Oriented
[2025-03-23 11:47] VITALS: BP 100/71; PULSE 70
[2025-03-23 11:48] VITALS: BP 100/71; PULSE 70; O2SAT 91
[2025-03-23 15:05] VITALS: BP 140/82
[2025-03-23] MEDS: LOVENOX 40 MG SC (18:10)
[2025-03-23] MEDS: FLOMAX 0.4 MG PO (21:58)
[2025-03-23 23:25] VITALS: BP 129/80
[2025-03-24] MEDS: LR IV (03:48)
[2025-03-24] MEDS: ZOSYN 50 IV ×2 (06:13→10:34)
[2025-03-24 06:24] LABS: % Basophils 0.1 % (0-2); % Eosinophils 5.8 % (0-6); % Immature Granulocytes 0.6 % (0-0.5); % Lymphocytes 20.4 % (20.5-51.1); % Monocytes 10.6 % (1.7-9.3); % Neutrophils 62.5 % (42.2-75.2); Absolute Eosinophils 0.4 10^3/uL (0-0.7); Absolute Lymphocytes 1.4 10^3/uL (1.2-3.4); Absolute Monocytes 0.7 10^3/uL (0.1-0.6); Absolute Neutrophils 4.2 10^3/uL (1.4-6.5); Hemoglobin 13.8 g/dL (13.0-18.0); Mean Corp Hgb Conc. 35.4 g/dL (33.0-37.0); Mean Corpuscular Hgb 32.8 pg (27.0-31.0); Mean Corpuscular Volume 92.6 fL (80.0-94.0); Mean Platelet Volume 9.3 fL (7.4-10.4); Nucleated Red Blood Cells % 0 % (-); Platelet Count 224 10^3/uL (130-400); Red Blood Cell Count 4.21 10^6/uL (4.70-6.10); Red Cell Dist. Width 11.9 % (11.5-14.5); White Blood Cell Count 6.7 10^3/uL (4.8-10.8)
--- NOTE | 2025-03-24 06:54 | W.PN.UPDATE ---
Update Note
Progress Note Update
Status post right total hip arthroplasty March 16, [address] Alcaraz. Postoperatively right hip pain is controlled but it is stiff. He did work a little yesterday with physical therapy. He does have pancreatitis/duodenitis and kidney stones. He
is scheduled for upper endoscopy today. Continue PT and Lovenox for DVT prophylactics.
[2025-03-24 07:05] VITALS: BP 118/76
[2025-03-24] MEDS: MIRALAX PO (07:37)
[2025-03-24] MEDS: PROTONIX IV 40 MG IV (07:37)
[2025-03-24] MEDS: NSS (PRESERVATIVE FREE) 10 ML IV (07:38)
[2025-03-24 08:00] LABS: ALT (SGPT) 32 U/L (0-50); AST (SGOT) 22 U/L (17-59); Albumin 3.1 g/dl (3.5-5.0); Alkaline Phosphatase 53 U/L (38-126); Blood Urea Nitrogen 18 mg/dl (9-20); Calcium 8.7 mg/dl (8.4-10.2); Carbon Dioxide 25 mmol/L (22-30); Chloride 109 mmol/L (98-107); Estimated Creatinine Clearance 71 ml/min; Glucose 87 mg/dl (70-99); Lipase 360 U/L (23-300); Potassium 4.2 mmol/L (3.5-5.1); Sodium 139 mmol/L (135-145); Total Bilirubin 1.1 mg/dl (0.2-1.3); Total Protein 5.6 g/dl (6.3-8.2); eGFR > 60.00
--- NOTE | 2025-03-24 08:03 | W.PN.URO.CBU ---
Today's Communication / Plan
-
Rec:
Tamsulosin/Finasteride
voiding trial after endoscopy today; CIC if fails
left ureteroscopy for left renal stone is non-urgent -- could be offered after GI issues resolved, possobly on 03/25 or later as an outpatient
Assessment / Plan
-
1. Left proximal ureteral stone -- 11 mm, chronically partially obstructing
2. Right renal parapelvic cysts
3. Prostatomegaly + comorbid conditions = urinary retention
Diagnosis
-
Date of Service: March 24, 2025
-
Patient Diagnosis:
1. Left proximal ureteral stone -- 11 mm, chronically partially obstructing
2. Right renal parapelvic cysts
3. Prostatomegaly + comorbid conditions = urinary retention
Subjective
-
comfortable with Garzon
awaiting upper GI endoscopy
Objective
-
Vital Signs
Temp Pulse Resp BP Pulse Ox
98.7 F 74 19 118/76 96
03/24/25 07:05 03/24/25 07:05 03/24/25 07:05 03/24/25 07:05 03/24/25 07:05
Intake and Output
03/23/25 03/24/25 03/25/25
06:59 06:59 06:59
Intake Total 1380 / 1380 1140 / 1140
Output Total 3300 / 3300 3250 / 3250
Balance -1920 / -1920 -2109 / -2109
Intake:
Oral fluids 1380 / 1380 1140 / 1140
Output:
Urine, Garzon 2100 / 2100 3250 / 3250
Straight cath output 1200 / 1200
Other:
Number of unmeasured liquid
stools
Rectum 2
Laboratory Results
03/24/25 06:11
03/24/25 06:11
Physical Exam
-
General - well developed, well nourished, no acute distress
Genitalia - Garzon draining jaqueline urine
Care Review
Data Reviewed
Discussed with: Other (plan d/w pt directly)
[2025-03-24 09:11] VITALS: BMI 28.4
[2025-03-24 09:27] VITALS: BP 111/71; BP_SYST 18
[2025-03-24 09:45] VITALS: BP 114/82; BP_SYST 12
[2025-03-24 10:00] VITALS: BP 118/76; BP_SYST 15
[2025-03-24] MEDS: LR 1000 IV (11:47)
--- NOTE | 2025-03-24 12:03 | CM ---
Met with patient at bedside
states patient was current with [facility] PT in [place]
will need script
PLAN: Discharge to home when medically stable; will continue with outpatient PT
to transport
[2025-03-24 14:58] VITALS: BP 115/78
--- NOTE | 2025-03-24 15:18 | W.PN.HOSP.TC ---
Today's Communication/Plan
-
dc to home
Assessment / Plan
Assessment / Plan
65-year-old with abdominal pain. Underwent. Right total hip arthroplasty 5 days prior to admission
CT abdomen and pelvis-diffuse thickening and increased enhancement of the wall of the duodenum from the duodenal bulb or the mid third portion as well as stranding of the adjacent fat. Findings are felt to represent duodenitis. Large obstructing
left ureteropelvic junction calculus with left pelvicalyceal dilatation Dalian excretion of the contrast. 6 mm x 11 mm. 4 mm nephrolith in the posterior lower pole of the left kidney. Central parapelvic cyst involving the right kidney. Colonic
diverticula
# As per Dr. Esteves, this was not Acute pancreatitis, but was acute duodenitis
History of alcohol (1-2 per day generally) use but none in the past 2 weeks
No gallstones. Normal LFTs and no biliary ductal dilatation,Inflammation in the duodenum on CT
Tolerating diet
Follow lipase
Follow clinically
Diet resumed
# Duodenitis
Likely secondary to NSAID use aspirin and Celebrex
PPI
Hold NSAIDs and aspirin
EGD: One cratered esophageal ulcer was found. The lesion was 5 mm in largest
dimension.
Localized mildly erythematous mucosa without bleeding was found in the
gastric antrum. Biopsies were taken with a cold forceps for Helicobacter
pylori testing.
Two non-bleeding cratered duodenal ulcer with no stigmata of bleeding
was found in the duodenal bulb. The lesion was 10-8 mm in largest
dimension. Biopsies were taken of ulcer edge with a cold forceps for
histology.
The exam of the stomach was otherwise normal.
# Urinary retention
Mild to moderate enlargement of the prostate gland
Start Flomax, ortega placed, removed today. Pt passed 100 cc urine, bladder scanned post void ad had 200 cc urine
Urology consulted, input appreciated
# Total hip arthroplasty right side
Mild ecchymosis at site
Did make [facility] orthopedics aware.
PT OT
# Left obstructing kidney stone
IV fluids
Urology evaluation-May need cystoscopy ureteroscopy
as per Urology 11 mm, chronically partially obstructing, with ureteroscopy felt to be non-urgent
# Diverticulosis sigmoid and descending colon
# DVT prophylaxis-Lovenox
# Full code
D/W RN
see dictated note
More than 30 minutes spent in discharge including
Final examination of the patient
Summarizing hospital stay
Instructions for continuing care to all relevant caregivers
Preparation of discharge records, prescriptions, and referral forms
Total time spent (in minutes): 55
Anticipated Discharge: Today
Subjective/Interval History
-
Date of Service: March 24, 2025
Feels well, ortega just removed. Pt would like to go home, just passed 100 cc urine and knows if he is unable to urinate, would need to return to hospital. Offered to keep overnight to confirm able to urinate, he declines and states he will return
if there is an issue
Objective Data
-
Labs:
Laboratory Results
03/24/25
06:11
WBC 6.7
Hgb 13.8
Hct 39.0
Plt Count 224
Sodium 139
Potassium 4.2
Chloride 109 H
Carbon Dioxide 25
BUN 18
Creatinine 1.1
Glucose 87
Calcium 8.7
Total Bilirubin 1.1
AST 22
ALT 32
Alkaline Phosphatase 53
Vital Signs:
Vital Signs
Temp Pulse Resp BP Pulse Ox
99.1 F 85 19 115/78 99
03/24/25 14:58 03/24/25 14:58 03/24/25 14:58 03/24/25 14:58 03/24/25 14:58
I&O
03/23/25 03/24/25 03/25/25
06:59 06:59 06:59
Intake Total 1380 / 1380 1140 / 1140
Output Total 3300 / 3300 3250 / 3250
Balance -1919 / -1919 -2109 / -2109
Review of Systems
-
History Source: Patient and Coordinated Provider (reviewed with ORTEGA Chávez)
Constitutional: Denies Fever
EENT: Reports No Symptoms Reported
Respiratory: Reports No Symptoms; Denies Trouble Breathing
Cardiac: Reports No Symptoms; Denies Chest Pain
Abdomen/GI: Reports Abdominal Pain (markedly reduced past 24 hrs)
Musculoskeletal: Reports Joint Pain (post op Rt JACLYN 03/16)
Neuro: Reports No Symptoms
Physical Exam
-
General: Well Developed, Well Nourished and No Apparent Distress
HEENT: Normocephalic, Atraumatic and Moist Mucous Membranes
Respiratory: Clear to Auscultation; Negative Wheezes, Rales or Rhonchi
Cardiac: Regular Rhythm and S1/S2
GI: Soft, Nontender (to light pressure) and Normal Bowel Sounds
Musculoskeletal: No Clubbing, No Cyanosis and No Edema
Neuro: Awake, Alert and Oriented
--- NOTE | 2025-03-24 18:38 | W.DS.TRANS ---
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
-
Discharge Instructions:
Discharge Diagnosis/Procedures Duodenitis
Diet Regular
Activity No strenuous activity
Driving Restrictions Not until seen by your Dr
Bathing Restrictions OK to Shower
Blood Work CBC, CMP in 1-2 weeks
Instructions:
Stand-Alone Forms:
Changes to Home Medications: Yes
Discharge Medications:
DC Medications w/original date entered in [employer]
acetaminophen 325 mg tablet (Tylenol) 650 mg PO Q6HPRN PRN mild pain 03/21/25
magnesium hydroxide 400 mg/5 mL oral suspension (Milk of Magnesia) 1,200 mg PO DAILYPRN PRN constipation 03/21/25
polyethylene glycol 3350 17 gram oral powder packet (Miralax) 17 g PO BID Constipation 03/21/25
simethicone 250 mg capsule (Gas-X) 250 mg PO BIDPRN PRN gas pains 03/21/25
amoxicillin 875 mg-potassium clavulanate 125 mg tablet 1 tab PO BID #14 tabs 03/24/25
aspirin 325 mg tablet,delayed release 325 mg PO DAILY #30 tabs 03/24/25
finasteride 5 mg tablet 5 mg PO DAILY #30 tabs 03/24/25
pantoprazole 40 mg tablet,delayed release (Protonix) 40 mg PO BID #180 tabs 03/24/25
tamsulosin 0.4 mg capsule 0.4 mg PO HS #30 caps 03/24/25
Home Medication Changes
Augmentin for 7 days
Aspirin should be coated
Proscar and Flomax started
Protonix will be bid
should stop Celebrex
Pending Results: No
== END 2025-03-24 17:20 | disposition home or self-care (01) | DRG 384 ==
LOC: 3 WEST ACU 21:19
PROVIDERS: Hospitalist; Internal Medicine Gastroenterology; Physician Assistant Medical; ADMITTING PHYSICIAN Internal Medicine; ATTENDING PHYSICIAN Internal Medicine; CONSULT PHYSICIAN Internal Medicine Gastroenterology; CONSULT PHYSICIAN Specialist; EMERGENCY PHYSICIAN Emergency Medicine; FAMILY PHYSICIAN Family Medicine
PROC: 0DB78ZX Excision of Stomach, Pylorus, Via Natural or Artificial Opening Endoscopic, Diagnostic (ICD-10-PCS; 2025-03-24)
PROC: 0DB98ZX Excision of Duodenum, Via Natural or Artificial Opening Endoscopic, Diagnostic (ICD-10-PCS; 2025-03-24)
DX: K26.9 Duodenal ulcer, unspecified as acute or chronic, without hemorrhage or perforation (principal); K22.10 Ulcer of esophagus without bleeding; N20.2 Calculus of kidney with calculus of ureter; Q61.02 Congenital multiple renal cysts; K29.80 Duodenitis without bleeding; K59.00 Constipation, unspecified; K31.89 Other diseases of stomach and duodenum; R74.8 Abnormal levels of other serum enzymes; N32.0 Bladder-neck obstruction; K57.30 Diverticulosis of large intestine without perforation or abscess without bleeding; N40.1 Benign prostatic hyperplasia with lower urinary tract symptoms; R33.9 Retention of urine, unspecified; Z96.641 Presence of right artificial hip joint; Z79.82 Long term (current) use of aspirin; Z79.52 Long term (current) use of systemic steroids; Z79.1 Long term (current) use of non-steroidal anti-inflammatories (NSAID); Z86.0101 Personal history of adenomatous and serrated colon polyps
CPT/HCPCS: 88305; 74177; 76700; 80053; 81003; 81015; 82248; 83690; 83735; 84478; 85025; 85027; 88342; 96361; 96374; 96375; 97161; 97165; 99285; Q9967

== ENCOUNTER 2025-04-19 12:11 | Emergency (ER) | payer BC, SELFPAY ==
[2025-04-19 12:12] VITALS: BP 114/78
--- NOTE | 2025-04-19 13:30 | ED.GENMED ---
History of Present Illness
General
Chief Complaint: Abdominal Symptoms
Source: patient
Exam Limitations: none
Time Seen by Provider: 04/19/25 13:19
History of Present Illness
History of Present Illness:
65-year-old male presents with increasing pain and bloating to the abdomen since yesterday. Symptoms feel similar to what he felt about a month ago after being diagnosed with pancreatitis and subsequently duodenitis. His symptoms then were thought
to be related to the medications you are taking following his hip replacement surgery. These medicines have since been stopped. And he is currently on Protonix. He denies dark stools. He is moving his bowels. Does note decreased appetite. Pain
does not radiate to the back no chest pain or shortness of breath. No other complaints
Past History
Past History
ED Past Medical History: None
ED Past Surgical History: Orthopedic
Social History
Tobacco: Non-smoker
Alcohol: Occasional
Drug: None
Personal:
Living: with family
Employment: Employed
Phy Exam
Physical Exam
Physical Exam:
General: Well-appearing male no acute respiratory distress HEENT: Normocephalic atraumatic
Heart: Regular rate and rhythm
Lungs: Clear no wheeze
Abdomen is soft mildly distended tender to the mid and epigastric region. No guarding or rebound
Extremities: No cyanosis
Course
Orders/Labs/Results
Orders:
Orders
04/19/25 13:29
CT Abd/pelvis W Iv Cont Urgent
Comment:
Reason For Exam: abdominal pain
04/19/25 13:38
Complete Blood Count/With Diff Urgent
Comprehensive Metabolic Panel Urgent
Lipase Urgent
Abnormal Lab Results
04/19/25
13:38
MCH 32.3 H pg
(27.0-31.0)
Chloride 109 H mmol/L
(98-107)
BUN 21 H mg/dl
(9-20)
Glucose 104 H mg/dl
(70-99)
04/19/25 13:38
04/19/25 13:38
Vital Signs
Initial and Last Documented VS:
Initial Vital Signs
Temp Pulse Resp BP Pulse Ox
97.8 F 93 16 114/78 98
04/19/25 12:12 04/19/25 12:12 04/19/25 12:12 04/19/25 12:12 04/19/25 12:12
Last Documented Vital Signs
Temp Pulse Resp BP Pulse Ox
97.8 F 93 16 114/78 98
04/19/25 12:12 04/19/25 12:12 04/19/25 12:12 04/19/25 12:12 04/19/25 13:32
MDM/Problems Addressed
Differential Diagnosis Includes:
Patient with abdominal discomfort and bloating. Similar to prior symptoms of duodenitis and pancreatitis. Will recheck labs. Given tenderness on exam check CT scan of abdomen.
*Pulse Oximetry
SaO2: 98
Oxygen Mode of Delivery: Room air
Patient hypoxic: no
*Critical Care Note
Total Time (30-74mins, 75-104mins- exclusive of procedures): Not Applicable
Update Note
Update Note:
Labs reviewed normal lipase. CT demonstrates unchanged large stone in the left renal pelvis with hydronephrosis. This is not new. No further findings of duodenitis or pancreatitis. Patient overall nontoxic. No indication for admission. He sees
urology this week for his stone in his renal pelvis
ED Attending Note
-
Portions of this chart may have been created with voice recognition software.� Occasional wrong word or��sound alike� substitutions may have occurred due to the inherent limitations of voice recognition software.
Discharge Plan
Departure
Patient Disposition: Home (Routine Discharge)
Date of Disposition: 04/19/25
Time of Disposition: 17:31
Patient with high blood pressure during this ER visit?: No
Discharge Problem:
Abdominal pain
Instructions: Abdominal Pain
Prescriptions:
No Action
acetaminophen [Tylenol] 325 mg Tablet
650 mg PO Q6HPRN PRN (Reason: mild pain)
polyethylene glycol 3350 [Miralax] 17 gram Powder In Packet
17 g PO BID
magnesium hydroxide [Milk of Magnesia] 400 mg/5 mL Suspension
1,200 mg PO DAILYPRN PRN (Reason: constipation)
Gas-X 250 mg Capsule
250 mg PO BIDPRN PRN (Reason: gas pains)
tamsulosin 0.4 mg Capsule
0.4 mg PO HS Qty: 30 3RF
finasteride 5 mg Tablet
5 mg PO DAILY Qty: 30 3RF
pantoprazole [Protonix] 40 mg tablet,delayed release (DR/EC)
40 mg PO BID Qty: 180 3RF
aspirin 325 mg tablet,delayed release (DR/EC)
325 mg PO DAILY Qty: 30 0RF
amoxicillin-pot clavulanate 875-125 mg tablet
1 tab PO BID Qty: 14 0RF
Referrals:
Florian Medina MD [Family Provider, Family Practice]
Activity Restrictions/Additional Instructions:
Please follow-up with urology team as planned. Return here for worsening symptoms as discussed
Interventions
Interventions:
*Risk Screen - Suicide Last Done: 04/19/25 12:12
*Neglect/Abuse Screening Last Done: 04/19/25 12:12
QQ-Ulrtty-Viavyxnaqj Assessment Last Done: 04/19/25 13:58
Discharge Date and Time
Print Language: ALBANIAN
[2025-04-19 13:45] LABS: % Basophils 0.4 % (0-2); % Eosinophils 2.6 % (0-6); % Immature Granulocytes 0.4 % (0-0.5); % Lymphocytes 22.6 % (20.5-51.1); % Monocytes 8.3 % (1.7-9.3); % Neutrophils 65.7 % (42.2-75.2); Absolute Eosinophils 0.1 10^3/uL (0-0.7); Absolute Lymphocytes 1.2 10^3/uL (1.2-3.4); Absolute Monocytes 0.5 10^3/uL (0.1-0.6); Absolute Neutrophils 3.6 10^3/uL (1.4-6.5); Hematocrit 42.7 % (39.0-52.0); Hemoglobin 15.3 g/dL (13.0-18.0); Mean Corp Hgb Conc. 35.8 g/dL (33.0-37.0); Mean Corpuscular Hgb 32.3 pg (27.0-31.0); Mean Corpuscular Volume 90.3 fL (80.0-94.0); Mean Platelet Volume 9.2 fL (7.4-10.4); Nucleated Red Blood Cells % 0 % (-); Platelet Count 239 10^3/uL (130-400); Red Blood Cell Count 4.73 10^6/uL (4.70-6.10); Red Cell Dist. Width 11.8 % (11.5-14.5); White Blood Cell Count 5.4 10^3/uL (4.8-10.8)
[2025-04-19 14:15] LABS: ALT (SGPT) 31 U/L (0-50); AST (SGOT) 24 U/L (17-59); Alkaline Phosphatase 85 U/L (38-126); Blood Urea Nitrogen 21 mg/dl (9-20); Calcium 9.7 mg/dl (8.4-10.2); Carbon Dioxide 26 mmol/L (22-30); Chloride 109 mmol/L (98-107); Glucose 104 mg/dl (70-99); Lipase 135 U/L (23-300); Potassium 4.7 mmol/L (3.5-5.1); Sodium 140 mmol/L (135-145); Total Bilirubin 0.7 mg/dl (0.2-1.3); Total Protein 6.7 g/dl (6.3-8.2); eGFR > 60.00
[2025-04-19 17:46] VITALS: BP 118/75
== END 2025-04-19 17:47 | disposition home or self-care (01) ==
LOC: EMR 12:11
PROVIDERS: Physician Assistant; EMERGENCY PHYSICIAN Emergency Medicine; FAMILY PHYSICIAN Family Medicine
DX: N13.2 Hydronephrosis with renal and ureteral calculous obstruction (principal); Z79.899 Other long term (current) drug therapy
CPT/HCPCS: 99284; 74177; 80053; 83690; 85025; Q9967

== ENCOUNTER 2025-05-05 06:17 | Day surgery (SDC) | payer BC, SELFPAY ==
[2025-05-05] VITALS (16 sets, daily range): BP systolic 123–149; BP diastolic 78–102; BMI 27.6; BMI 28.4
[2025-05-05] MEDS: NORMOSOL-R/PLASMALYTE-A 1000 IV (11:48)
[2025-05-05] MEDS: DILAUDID 0.25 MG IV ×3 (18:17→19:07)
--- NOTE | 2025-05-05 18:24 | W.PN.URO.CBU ---
Today's Communication / Plan
-
pos top
Assessment / Plan
-
atempt madet to laser ans remove lg upj stone in so bdoing art of basket remaoina atleft upj also upj and 2areas of uretrnoted to have partial avulsion but enough in tact to advnce uretroscopt ot renal pelvis and place stent folowed by 6 fr 26
cm jj stent that was draiing urine will admoit check lyes ct scan in am may require perc tube
Diagnosis
-
Date of Service: May 05, 2025
-
Patient Diagnosis:
left upj stone underwnt left uretoscpy basket extarction par o basket remains in lef tkidnety and 3 aerea s of injury / distraction perforatio upoj mid and disatl uretre pt stented across all areas
Post Op Day:
Subjective
-
stable hates foleyt
Objective
-
Vital Signs
Temp Pulse Resp BP Pulse Ox
97.1 F 69 12 134/90 100
05/05/25 17:40 05/05/25 18:15 05/05/25 18:15 05/05/25 18:15 05/05/25 18:00
Review of Systems
-
: Flank Pain and Bleeding
Physical Exam
-
General - well developed, well nourished, no acute distress
Chest - clear bilaterally
Abdomen - soft, non-tender, positive bowel sounds, no CVAT, no incisional pain or distention
Genitalia - normal
Rectal - normal
Skin - warm & dry with no rash
Neuro - AOx3, no motor deficits
Extremities - no clubbing, no cyanosis, no edema
Incision - clean, dr
Counseling
-
admit ct in am check lytes
Care Review
Data Reviewed
Discussed with: Nursing and Family
[2025-05-05 18:39] LABS: Hematocrit 40.4 % (39.0-52.0); Hemoglobin 14.4 g/dL (13.0-18.0); Mean Corp Hgb Conc. 35.6 g/dL (33.0-37.0); Mean Corpuscular Volume 92.2 fL (80.0-94.0); Platelet Count 189 10^3/uL (130-400); Red Cell Dist. Width 11.8 % (11.5-14.5)
[2025-05-05] MEDS: LEVAQUIN 100 IV (18:47)
[2025-05-05 18:59] LABS: Blood Urea Nitrogen 18 mg/dl (9-20); Calcium 8.4 mg/dl (8.4-10.2); Carbon Dioxide 21 mmol/L (22-30); Chloride 108 mmol/L (98-107); Estimated Creatinine Clearance 65 ml/min; Glucose 124 mg/dl (70-99); Potassium 4.5 mmol/L (3.5-5.1); Sodium 136 mmol/L (135-145); eGFR > 60.00
[2025-05-05] MEDS: PERCOCET 5/325 1 TABLET PO ×2 (20:27→23:52)
[2025-05-05] MEDS: MIRALAX 17 GRAMS PO (20:27)
[2025-05-05] MEDS: PROTONIX 40 MG PO (23:29)
--- NOTE | 2025-05-05 23:45 | PTCARENOTE ---
20:37 pt rec'vd from PACU, AAOX3, able to make needs known. Pt c/o mild left low back, abd distended and tender to touch vs stable, prn Percocet given, oriented to unit , see prn JOAN for pain follow up.
[2025-05-06 03:51] VITALS: BP 125/66
[2025-05-06] MEDS: PERCOCET 5/325 1 TABLET PO ×2 (05:46→13:41)
[2025-05-06 07:05] VITALS: BP 109/68
[2025-05-06 07:25] LABS: Blood Urea Nitrogen 19 mg/dl (9-20); Calcium 8.9 mg/dl (8.4-10.2); Carbon Dioxide 22 mmol/L (22-30); Chloride 107 mmol/L (98-107); Estimated Creatinine Clearance 60 ml/min; Glucose 134 mg/dl (70-99); Potassium 4.8 mmol/L (3.5-5.1); Sodium 134 mmol/L (135-145); eGFR > 60.00
[2025-05-06] MEDS: VISBIOME 1 CAP PO (10:22)
[2025-05-06] MEDS: PROTONIX 40 MG PO (10:22)
[2025-05-06] MEDS: PROSCAR 5 MG PO (10:22)
[2025-05-06] MEDS: METAMUCIL, KONSYL 1 PACKET PO (10:22)
[2025-05-06] MEDS: MIRALAX 17 GRAMS PO (10:23)
[2025-05-06 11:31] VITALS: BP 111/69
--- NOTE | 2025-05-06 12:45 | PTCARENOTE ---
Patient OOB with a steady gait and supervision. Patient used walker n room due to recent hip surgery and a place to hang his catheter bag.Patient tolerating regular diet, ortega leg bag teaching done with patient and spouse. Teaching handout given
for leg/ortega care. Patient and spouse verbalized understanding.
--- NOTE | 2025-05-06 12:52 | W.PN.URO.CBU ---
Today's Communication / Plan
-
/c p[ost levaquin and teach ortega care
Assessment / Plan
-
atempt madet to laser ans remove lg upj stone in so bdoing art of basket remaoina atleft upj also upj and 2areas of uretrnoted to have partial avulsion but enough in tact to advnce uretroscopt ot renal pelvis and place stent folowed by 6 fr 26
cm jj swtyent Quiet hs no ferv ctyt scan prompt uptake exvreyiom min to no sextraxvasation will d/c on levaquoin with ortega dr kuhn contacted
Diagnosis
-
Date of Service: May 06, 2025
-
Patient Diagnosis:
Post Op Day:
Patient Diagnosis:
left upj stone underwnt left uretoscpy basket extarction par o basket remains in lef tkidnety and 3 aerea s of injury / distraction perforatio upoj mid and disatl uretre pt stented across all areas
Post Op Day:
Subjective
-
no fever mild pain hates ortega
Objective
-
Vital Signs
Temp Pulse Resp BP Pulse Ox
98.8 F 54 14 111/69 95
05/06/25 11:31 05/06/25 11:31 05/06/25 11:31 05/06/25 11:31 05/06/25 11:31
Intake and Output
05/05/25 05/06/25 05/07/25
06:59 06:59 06:59
Intake Total 860 / 860
Output Total 1575 / 1575 1375 / 1375
Balance -715 / -715 -1375 / -1375
Intake:
Oral fluids 560 / 560
IV fluids (Total) 300 / 300
Normosal 300 / 300
Output:
Urine, Ortega 1575 / 1575 1375 / 1375
Laboratory Results
05/06/25 06:50
Review of Systems
-
: Difficulty Voiding
Physical Exam
-
General - well developed, well nourished, no acute distressnon toxic
Chest - clear bilaterally
Abdomen - soft, non-tender, positive bowel sounds, no CVAT, no incisional pain or distention
Genitalia - normal
Rectal - normal
Skin - warm & dry with no rash
Neuro - AOx3, no motor deficits
Extremities - no clubbing, no cyanosis, no edema
Incision - clean, dry
Dressing - clean, dry, intact
Care Review
Data Reviewed
Discussed with: Nursing, Family and Other (radiology)
CT Scan: Image Pers Reviewed
--- NOTE | 2025-05-06 13:08 | CM ---
Pt cleared for discharge s/p ureteroscopy. CM spoke with pt to offer VN for ortega care since this is new. Jean-Paul is in agreement with [facility] to [facility] in case he needs more teaching once he goes home.
Plan: D/C home with referral to VN
[2025-05-06] MEDS: LEVAQUIN 100 IV (13:41)
--- NOTE | 2025-05-06 14:37 | PTCARENOTE ---
Addendum entered by Aletha Nevarez RN 05/06/25 15:08:
Dr. Ozzie mcadams texted to confirm Levaquin was correct to be order and indicated it was not included in the discharge instructions.
Original Note:
Rn Flowcoordinator- Patient cleared for d/c. As per / Humberto note patient to continue on levaquin at home. Levaquin not in d/c instructions. As per patient, his picked up levaquin at [facility]. Patient instructed to take levaquin as
directed on the bottle starting tomorrow.
--- NOTE | 2025-05-06 14:41 | VNURNOTE ---
Home Health Liaison spoke with patient to discuss [facility] nurse/therapy, visits, schedule and homebound status. Patient stated he was shown ortega cath care by nurse. He feels he will be ok managing at home. He is aware to contact urology if
questions/concerns once home.
No referral placed.
[2025-05-06 15:02] VITALS: BP 130/79
== END 2025-05-06 15:39 | disposition home or self-care (01) ==
LOC: SDS 06:17
PROVIDERS: ATTENDING PHYSICIAN Specialist; FAMILY PHYSICIAN Internal Medicine Cardiovascular Disease
DX: N20.1 Calculus of ureter (principal); K85.90 Acute pancreatitis without necrosis or infection, unspecified; Z87.442 Personal history of urinary calculi; N28.89 Other specified disorders of kidney and ureter
CPT/HCPCS: 52356; 74018; 74178; 76000; 80048; 85027; A4300; C1769; C1894; C2617; Q9967

== ENCOUNTER 2025-07-27 11:02 | Emergency (ER) | payer BC, SELFPAY ==
[2025-07-27 11:11] VITALS: BP 121/79
[2025-07-27 11:27] LABS: Hematocrit 38.4 % (39.0-52.0); Hemoglobin 12.7 g/dL (13.0-18.0); Mean Corp Hgb Conc. 33.1 g/dL (33.0-37.0); Mean Corpuscular Volume 90.4 fL (80.0-94.0); Nucleated Red Blood Cells % 0 % (-); Platelet Count 353 10^3/uL (130-400); Red Cell Dist. Width 12.3 % (11.5-14.5)
[2025-07-27 11:52] LABS: ALT (SGPT) 31 U/L (0-50); AST (SGOT) 24 U/L (17-59); Albumin 3.7 g/dl (3.5-5.0); Alkaline Phosphatase 82 U/L (38-126); Blood Urea Nitrogen 17 mg/dl (9-20); Calcium 9.4 mg/dl (8.4-10.2); Carbon Dioxide 23 mmol/L (22-30); Chloride 105 mmol/L (98-107); Glucose 117 mg/dl (70-99); Potassium 4.1 mmol/L (3.5-5.1); Sodium 137 mmol/L (135-145); Total Protein 7.3 g/dl (6.3-8.2); eGFR > 60.00
--- NOTE | 2025-07-27 14:52 | ED.GENMED ---
History of Present Illness
General
Chief Complaint: Cold/Flu/URI Symptoms
Time Seen by Provider: 07/27/25 14:09
History of Present Illness
History of Present Illness:
65-year-old male with recent history of left kidney stone status post surgery for ureteral reconstruction presenting to the emergency department for known COVID infection with concern of hypoxia and hypotension. Patient arrives from primary care
doctor where he was noted to have low blood pressure and oxygen saturations in the high 80s. Patient reports for the past 5 days he has been having congestion and cough with chills. He notes recent surgery on July 08 which she has been
healing appropriately from. He had his yao removed last Sunday and then started to feel ill the following day. Denies any chest pain. Denies any pulmonary history. Denies abdominal pain or GI symptoms. Denies additional acute medical
complaints
Past History
Past History
ED Past Medical History: None
ED Past Surgical History: Orthopedic
Social History
Tobacco: Non-smoker
Alcohol: Occasional
Drug: None
Personal:
Living: with family
Employment: Employed
Phy Exam
Physical Exam
Physical Exam:
General: Well-appearing, no clinical signs of dehydration, nontoxic and in no acute distress
HEENT: protecting airway
Neck: appears supple
CV: Normal heart rate, regular rhythm, no evidence of cyanosis
Resp: No accessory muscle use, no increased work of breathing, lungs clear to auscultation bilaterally
Abd: No distention
Extremities: No deformities, no swelling
Neuro: alert, no focal neurologic deficit
: deferred
Rectal: deferred
Psych: Normal affect
Skin: Intact
Course
Orders/Labs/Results
Orders:
Orders
07/27/25 11:16
Chest [CR Chest - 2 Views ] Urgent
Comment:
Reason For Exam: cough
07/27/25 11:19
Complete Blood Count/With Diff Urgent
Comprehensive Metabolic Panel Urgent
Abnormal Lab Results
07/27/25
11:19
RBC 4.25 L 10^6/uL
(4.70-6.10)
Hgb 12.7 L g/dL
(13.0-18.0)
Hct 38.4 L %
(39.0-52.0)
Abs Immat Gran (auto) 0.1 H 10^3/uL
(0-0.05)
Absolute Lymphs (auto) 1.0 L 10^3/uL
(1.2-3.4)
Absolute Monos (auto) 1.1 H 10^3/uL
(0.1-0.6)
Immature Gran % 1.0 H %
(0-0.5)
Lymphocytes % 11.7 L %
(20.5-51.1)
Monocytes % 13.5 H %
(1.7-9.3)
Glucose 117 H mg/dl
(70-99)
07/27/25 11:19
07/27/25 11:19
Vital Signs
Initial and Last Documented VS:
Initial Vital Signs
Temp Pulse Resp BP Pulse Ox
98.4 F 86 18 121/79 99
07/27/25 11:11 07/27/25 11:11 07/27/25 11:11 07/27/25 11:11 07/27/25 11:11
Last Documented Vital Signs
Temp Pulse Resp BP Pulse Ox
98.4 F 86 18 121/79 99
07/27/25 11:11 07/27/25 11:11 07/27/25 11:11 07/27/25 11:11 07/27/25 11:11
MDM/Problems Addressed
MDM/Problems Addressed:
65-year-old male presenting to the emergency department with known COVID infection presenting for concern of low oxygen and low blood pressure. Vital signs here are normal.
On exam patient is resting comfortably, no acute distress or discomfort. No respiratory distress with lungs clear to auscultation. Without present concern for respiratory compromise. Normal oxygenation at rest. Will obtain amatory pulse ox.
Labs obtained prior to my assessment, no leukocytosis. Chest x-ray also obtained which shows small opacity, favored to be atelectasis. Patient remains afebrile. Suspected viral etiology without present concern for bacterial pneumonia.
15:00 - Ambulatory pulse ox within normal limits and blood pressure remained stable. Ultimately feel stable for discharge with continued outpatient supportive therapy for viral illness. Patient was prescribed steroids by his PCP which I feel is
reasonable. Will also add Tessalon Perles. Feel stable for discharge. Return precautions discussed and patient verbalized
*Pulse Oximetry
SaO2: 99
Oxygen Mode of Delivery: Room air
Patient hypoxic: no
*Critical Care Note
Total Time (30-74mins, 75-104mins- exclusive of procedures): Not Applicable
ED Attending Note
-
Portions of this chart may have been created with voice recognition software.� Occasional wrong word or��sound alike� substitutions may have occurred due to the inherent limitations of voice recognition software.
Discharge Plan
Departure
Prescriptions:
No Action
acetaminophen [Tylenol] 325 mg Tablet
650 mg PO Q6HPRN PRN (Reason: mild pain)
polyethylene glycol 3350 [Miralax] 17 gram Powder In Packet
17 g PO BID
tamsulosin 0.4 mg Capsule
0.4 mg PO HS Qty: 30 3RF
finasteride 5 mg Tablet
5 mg PO DAILY Qty: 30 3RF
fluticasone propionate 50 mcg/actuation [place],Suspension
1 spray INTRANASAL DAILY
methylcellulose (with sugar) Powder In Packet
1 ea PO DAILY
pantoprazole [Protonix] 40 mg tablet,delayed release (DR/EC)
40 mg PO DAILY
Probiotic
1 dose PO DAILY
Referrals:
Florian Medina MD [Family Provider, Family Practice]
Interventions
Interventions:
*Risk Screen - Suicide Last Done: 07/27/25 11:11
*General Assessment Last Done: 07/27/25 11:11
Discharge Date and Time
Print Language: SETSWANA
[2025-07-27 15:00] VITALS: BP 110/83
== END 2025-07-27 15:29 | disposition home or self-care (01) ==
LOC: EMR 11:02
PROVIDERS: Emergency Medicine; EMERGENCY PHYSICIAN Student in an Organized Health Care Education/Training Program; FAMILY PHYSICIAN Family Medicine
DX: U07.1 COVID-19 (principal); B34.9 Viral infection, unspecified
CPT/HCPCS: 99284; 71046; 80053; 85025

== ENCOUNTER 2025-08-07 19:30 | Inpatient (IN) | payer BC, SELFPAY ==
[2025-08-07] VITALS (8 sets, daily range): BP systolic 104–133; BP diastolic 67–83; BMI 24.6
[2025-08-07 15:31] LABS: Hematocrit 39.2 % (39.0-52.0); Hemoglobin 12.5 g/dL (13.0-18.0); Mean Corp Hgb Conc. 31.9 g/dL (33.0-37.0); Mean Corpuscular Volume 91.6 fL (80.0-94.0); Nucleated Red Blood Cells % 0 % (-); Platelet Count 428 10^3/uL (130-400); Red Cell Dist. Width 12.6 % (11.5-14.5)
[2025-08-07 15:47] LABS: ALT (SGPT) 27 U/L (0-50); AST (SGOT) 21 U/L (17-59); Albumin 4.0 g/dl (3.5-5.0); Alkaline Phosphatase 115 U/L (38-126); Blood Urea Nitrogen 22 mg/dl (9-20); Calcium 9.5 mg/dl (8.4-10.2); Carbon Dioxide 21 mmol/L (22-30); Chloride 100 mmol/L (98-107); Glucose 118 mg/dl (70-99); Potassium 4.8 mmol/L (3.5-5.1); Sodium 134 mmol/L (135-145); Total Protein 8.0 g/dl (6.3-8.2); eGFR > 60.00
[2025-08-07 15:53] LABS: Troponin I < 0.012 ng/ml
[2025-08-07 16:03] LABS: D-Dimer 2.74 ug/mlFEU (0.00-0.50)
--- NOTE | 2025-08-07 16:14 | ED.GENMED ---
History of Present Illness
General
Chief Complaint: Breathing Problem
Source: patient
Exam Limitations: none
Time Seen by Provider: 08/07/25 15:57
History of Present Illness
History of Present Illness:
65-year-old male presents complaining of shortness of breath that worsened today. He was here on July 27 and was diagnosed with COVID. He thought he had been doing pretty well recovering well and felt good. He went for a walk this morning
was quite short of breath. He took his oxygen at home when he got home and was 85%. Since then he has been working harder to breathe. He denies chest pain. Of note, patient also had a ureteral replacement done at [facility] on July 08
of this year. He just had his stent from his ureter removed 3 days ago. He denies a fever. He denies chest pain. No recent leg swelling or calf pain. No recent travel. Complaints
Past History
Past History
ED Past Medical History: None
ED Past Surgical History: Orthopedic
Social History
Tobacco: Non-smoker
Alcohol: Occasional
Drug: None
Personal:
Living: with family
Employment: Employed
Phy Exam
Physical Exam
Physical Exam:
General: Well-developed male with increased work of breathing
HEENT: Normal cephalic atraumatic
Heart: Tachycardic but regular
Lungs: Clear no wheeze
Abdomen is soft but slightly tender over the surgical incision.
Extremities: No cyanosis or edema
Scores
Heart Failure Risk
Heart Failure Risk Score: Not Applicable
Course
Orders/Labs/Results
Orders:
Orders
08/07/25
Electrocardiogram (*1) Stat
Comment: DONE EMR
08/07/25 14:55
Chest [CR Chest - 2 Views ] Urgent
Comment:
Reason For Exam: SOB
08/07/25 15:15
Complete Blood Count/With Diff Urgent
Comprehensive Metabolic Panel Urgent
D-Dimer Urgent
Troponin I Urgent
08/07/25 16:14
CT Chest PE Study Urgent
Comment:
Reason For Exam: sob
08/07/25 18:20
PTT Urgent
Comment: Obtain baseline before beginning heparin infusion if not already collected
Heparin 6,400 units IV NOW STA
Pharmacy Request to Place See Dose Instructions PO NOW STA
Discontinue all Active Warfarin orders?: Yes
Nursing to Place Non Medication Order As Directed
Physician Order: PTT 6 hours after initial start of Heparin infusion
08/07/25 18:30
Heparin 89982 Units/250 ml 25,000 units in 250 ml IV PER PROTOCOL
Weight to be used for heparin protocol in kilograms (kg):: 80
Protocol:: DVT/PE
PTT Goal Range to be used:: PTT 73 to 111 seconds
Order type:: Initial
INITIAL Infusion Dose (UNITS/KG/hr) & then follow protocol:: 18 units/kg/hr
Infusion Dose in UNITS/hr & then follow protocol (UNITS/hr):: 1,400
INFUSION RATE in mL/hr & then follow protocol (mL/hr):: 14
For DVT/PE algorithm, re-bolus for low PTT?: Yes
PTT less than or equal to 64 seconds:: Re-bolus 80 units/kg (max 10,000units). Increase by 300 units/hr
(+ 3mL/hr)
PTT 64.1 to 72.9 seconds:: Re-bolus 40 units/kg (max 5,000 units). Increase by 200 units/hr
(+ 2mL/hr)
PTT 73 to 111 seconds:: Target Range. No change in rate.
PTT 111.1 to 130.9 seconds:: Decrease rate by 200 units/hr (- 2 mL/hr)
PTT 131 to 199.9 seconds:: HOLD for 1 hr. Then decrease by 200 units/hr (- 2mL/hr)
PTT greater than or equal to 200 seconds:: HOLD for 2 hrs & Notify Provider. Then decrease by 300 units/hr
(- 3mL/hr)
Lab follow-up:: Each change, PTT q6h until 2 consecutive are therapeutic. Then
PTT daily.
08/07/25 19:[address] See Dose Instructions IV DIRECTED
Abnormal Lab Results
08/07/25
15:15
WBC 12.0 H 10^3/uL
(4.8-10.8)
RBC 4.28 L 10^6/uL
(4.70-6.10)
Hgb 12.5 L g/dL
(13.0-18.0)
MCHC 31.9 L g/dL
(33.0-37.0)
Plt Count 428 H 10^3/uL
(130-400)
Abs Immat Gran (auto) 0.1 H 10^3/uL
(0-0.05)
Absolute Neuts (auto) 9.8 H 10^3/uL
(1.4-6.5)
Absolute Monos (auto) 0.8 H 10^3/uL
(0.1-0.6)
Immature Gran % 0.9 H %
(0-0.5)
Neutrophils % 81.8 H %
(42.2-75.2)
Lymphocytes % 10.2 L %
(20.5-51.1)
D-Dimer 2.74 H ug/mlFEU
(0.00-0.50)
Sodium 134 L mmol/L
(135-145)
Carbon Dioxide 21 L mmol/L
(22-30)
BUN 22 H mg/dl
(9-20)
Glucose 118 H mg/dl
(70-99)
08/07/25 15:15
08/07/25 15:15
Vital Signs
Initial and Last Documented VS:
Initial Vital Signs
Temp Pulse Resp BP Pulse Ox
97.6 F 104 20 109/81 99
08/07/25 14:48 08/07/25 14:48 08/07/25 14:48 08/07/25 14:48 08/07/25 14:48
Last Documented Vital Signs
Temp Pulse Resp BP Pulse Ox
97.6 F 90 18 113/80 100
08/07/25 14:48 08/07/25 17:30 08/07/25 17:30 08/07/25 17:00 08/07/25 17:30
MDM/Problems Addressed
Differential Diagnosis Includes:
Shortness of breath. Consider complication of COVID versus pneumonia versus CHF versus PE given recent surgeries. He is slightly tachycardic at rest and tachypneic but not hypoxic currently. EKG shows sinus rhythm with rate of 87 without ischemic
changes. Labs reviewed white blood cell count 12,000 troponin undetectable. Chest x-ray was clear for acute findings.
PE study ordered of chest secondary to tachycardia tachypnea hypoxia recent surgery.
*Pulse Oximetry
SaO2: 99
Oxygen Mode of Delivery: Room air
Patient hypoxic: no
*Critical Care Note
Total Time (30-74mins, 75-104mins- exclusive of procedures): Not Applicable
Update Note
Update Note:
CT demonstrates mild pulmonary embolism clot burden without right heart strain. Patient still tachypneic at rest. Will start heparin. Will admit to hospital.
ED Attending Note
-
Portions of this chart may have been created with voice recognition software.� Occasional wrong word or��sound alike� substitutions may have occurred due to the inherent limitations of voice recognition software.
Discharge Plan
Departure
Patient Disposition: Admit
Date of Disposition: 08/07/25
Time of Disposition: 18:31
Presentation/result/management discussed w/ accepting MD/DO: Hospitalist
Discharge Problem:
Pulmonary embolism
Prescriptions:
No Action
acetaminophen [Tylenol] 325 mg Tablet
650 mg PO Q6HPRN PRN (Reason: mild pain)
polyethylene glycol 3350 [Miralax] 17 gram Powder In Packet
17 g PO BID
tamsulosin 0.4 mg Capsule
0.4 mg PO HS Qty: 30 3RF
finasteride 5 mg Tablet
5 mg PO DAILY Qty: 30 3RF
fluticasone propionate 50 mcg/actuation [place],Suspension
1 spray INTRANASAL DAILY
methylcellulose (with sugar) Powder In Packet
1 ea PO DAILY
pantoprazole [Protonix] 40 mg tablet,delayed release (DR/EC)
40 mg PO DAILY
Probiotic
1 dose PO DAILY
benzonatate 100 mg capsule
100 mg PO BID PRN (Reason: Cough) 5 Days Qty: 10 0RF
Referrals:
Florian Medina MD [Family Provider, Family Practice]
Interventions
Interventions:
*Risk Screen - Suicide Last Done: 08/07/25 14:48
*General Assessment Last Done: 08/07/25 14:48
*ED COVID-19 Vaccine History Last Done: 08/07/25 14:48
*ED Influenza Vaccine History Last Done: 08/07/25 14:48
ED- Cardiac Assessment Last Done: 08/07/25 16:05
ED- Pulmonary Assessment Last Done: 08/07/25 16:05
Discharge Date and Time
Print Language: BRITISH
--- NOTE | 2025-08-07 18:26 | HPS.HSE ---
Family Physician
-
Family Physician: Florian Medina
Chief Complaint
-
shortness of breath
History of Present Illness
Patient is a 65-year-old male with no significant past medical history who presented to [facility] ED for evaluation of shortness of breath. Patient reports becoming short of breath while walking outdoors on slight incline today, which he states is not
normal for him. Patient reports right total hip replacement in February, had an allergic reaction with Celebrex post surgery and left kidney stone was found incidentally. Patient reports that stone so imbedded it caused damage to ureter and he required a
ureter transplant at [place] on 07/08/2025. Post surgery patient was diagnosed with Covid on 07/27/2025 at primary care office and treated with just supportive care. Patient denies any additional symptoms, fever, chills, cough, chest pain or
palpitations.
Medical History
Past Medical History
Past Medical History: Reports Other
Additional Past Medical History:
left kidney stone
Meniere's disease
Past Surgical History: Reports Other
Additional Past Surgical History:
Right total hip arthroplasty 03/16/2025
ureteral transplant
Social History
Tobacco: Non-smoker
Alcohol: Occasional (Last drink was 2 weeks ago)
Drug: None
Personal:
Living: With Family
Employment: Employed
Family History
Family History: Other (Father: COPD)
Allergies / Home Medications
Allergies reflects when Allergies were last updated in [employer].
Home Medications with original date entered in [employer]
Allergy/Medication List:
Allergies
Allergy/AdvReac Type Severity Reaction Status Date / Time
celecoxib (From Celebrex) AdvReac Intermediate duodenitits, Verified 08/07/25 16:14
pancreatitis
Home Medications
polyethylene glycol 3350 17 gram oral powder packet (Miralax) 17 g PO DAILY 03/21/25
finasteride 5 mg tablet 5 mg PO DAILY #30 tabs 03/24/25
tamsulosin 0.4 mg capsule 0.4 mg PO HS #30 caps 03/24/25
fluticasone propionate 50 mcg/actuation nasal spray,suspension 1 spray intranasal DAILY 04/29/25
methylcellulose (with sugar) oral powder packet 1 ea PO DAILY PRN bowel movement 04/29/25
pantoprazole 40 mg tablet,delayed release (Protonix) 40 mg PO BID 04/29/25
benzonatate 100 mg capsule 100 mg PO BID PRN Cough 5 days #10 caps 07/27/25
acetaminophen 500 mg tablet 1,000 mg PO TID PRN pain 08/07/25
diphenhydramine HCl 25 mg capsule (Benadryl) 25 mg PO HS PRN sleep 08/07/25
Review of Systems
-
History Source: Patient
Constitutional: Denies Fever or Chills
EENT: Denies Sore Throat or Mouth Pain
Respiratory: Reports Trouble Breathing (exertional dyspnea ); Denies Cough
Cardiac: Denies Chest Pain, Diaphoresis, Palpitations or Syncope
Abdomen/GI: Denies Abdominal Pain, Nausea, Vomiting or Diarrhea
: Denies Dysuria, Frequency or Urgency
Musculoskeletal: Denies Joint Pain or Joint Swelling
Skin: Denies Rash
Neurological: Denies Dizzy, Headache, Weakness or Numbness
Endocrine: Denies Polyuria or Polydipsia
Hematologic/Lymphatic: Denies Bleeding
Physical Exam
Vital Signs
Vital Signs
Temp Pulse Resp BP Pulse Ox
97.6 F 90 18 113/80 100
08/07/25 14:48 08/07/25 17:30 08/07/25 17:30 08/07/25 17:00 08/07/25 17:30
Physical Exam
General: Well Developed, Well Nourished, Comfortable and Conversant
HEENT: NormoCephalic, Moist mucous membranes, PERRLA, Nose Appears Normal and Ears Appear Normal
Respiratory: Clear and Non Labored Respirations; No Wheezes, Rales, Rhonchi or Crackles
Cardiac: S1/S2 and Regular Rhythm; No Murmur, Rub or Gallop
GI: Soft, Non Distended, Normal Bowel Sounds and Tender (mild tenderness over surgical incision site )
Musculoskeletal: No Clubbing, No Cyanosis and No Edema
Skin: Warm and IV/Catheter Site
Neuro: Awake and AO x 3
Hematologic/Lymphatic: No Lymphadenopathy
Psych: Calm and Intact Judgment/Insight
Laboratory Results
-
08/07/25 15:15
08/07/25 15:15
Laboratory Results
Total Bilirubin 1.0 mg/dl (0.2-1.3) 08/07/25 15:15
AST 21 U/L (17-59) 08/07/25 15:15
ALT 27 U/L (0-50) 08/07/25 15:15
Alkaline Phosphatase 115 U/L (38-126) 08/07/25 15:15
Troponin I < 0.012 ng/ml 08/07/25 15:15
Data Reviewed
-
Diagnostic Radiology: Report Reviewed by me (CXR: Small rounded opacity in left lower lung field probably atelectasis or scarring which is seen on prior CT examination of the abdomen. Developing pneumonia not excluded. Prominent pericardial fat.
Stable)
CT Scan: Report Reviewed by me (Chest: Left lower lobe pulmonary embolus. Mild clot burden. No evidence of right heart strain. Ascending aortic ectasia measuring 4.6 cm. Critical value: Pulmonary embolus.)
Medical Tests (Nuc Med, Echo, EKG etc): Report Reviewed by me (EKG: NORMAL SINUS RHYTHM)
Lab Data: Labs Reviewed by me (WBC 12.0, Neut 81.8)
Impression/Plan
-
IMPRESSION/PLAN:
#exertional dyspnea 2/2 PE vs. PNA vs. cardiac involvement
WBC 12.0, Neut 81.8
EKG: NORMAL SINUS RHYTHM
CXR: Small rounded opacity in left lower lung field probably atelectasis or scarring which is seen on prior CT examination of the abdomen. Developing pneumonia not excluded.
Prominent pericardial fat. Stable
Chest CT: Left lower lobe pulmonary embolus. Mild clot burden. No evidence of right heart strain.
Ascending aortic ectasia measuring 4.6 cm.
Critical value: Pulmonary embolus.
- Admit to telemetry
- Consult Pulmonary
- heparin gtt
- trend CBC while on heparin
- ECHO
#Hx kidney stone
s/p ureter transplant
- continue finasteride and tamsulosin
Code status: full code
DVT prophylaxis: heparin gtt
--- NOTE | 2025-08-07 18:37 | W.PN.UPDATE ---
Update Note
Progress Note Update
This note serves as an addendum to the H&P by warehouse general laborer Hipolito Fish
HPI
65M Recent HX Covid ( 07/27/25) s/p ureterla TP (07/08/25) and stent removal (07/27) at [facility] seen at ER:
- report shortness of breath that worsened today.
- on July 27 and was diagnosed with COVID at ER - had been doing pretty well recovering well and felt good.
- Interbval Velásquez when he walked this AM
- Noted POx was 85% - since then he has been working harder to breathe.
ROS
- denies chest pain.
- denies a fever. He denies chest pain.
- No recent leg swelling or calf pain.
- No recent travel.
Relevant VS
Temp Pulse Resp BP Pulse Ox
97.6 F 91 22 133/77 99
08/07/25 14:48 08/07/25 18:30 08/07/25 18:32 08/07/25 18:06 08/07/25 18:32
PE
General: increased work of breathing
HEENT: Normal cephalic atraumatic
CVS: Tachycardic but regular
Lungs: Clear. No wheeze
Abdomen: soft but slightly tender over the surgical incision.
Extremities: No cyanosis or edema
Relevant Data
07/27/25 08/07/25
11:19 15:15
WBC 12.0 H
Hgb 12.7 L 12.5 L
Plt Count 353 428 H
D-Dimer 2.74 H
Sodium 134 L
Potassium 4.8
Carbon Dioxide 21 L
BUN 22 H
Creatinine 1.1
eGFR > 60.00
Troponin I < 0.012
EKG report
NORMAL SINUS RHYTHM
NORMAL ECG
WHEN COMPARED WITH ECG OF 14-Feb-2025 08:04,
PREMATURE VENTRICULAR COMPLEXES ARE NO LONGER PRESENT
Confirmed by EARLINE TORRES MD ([id number]) on 08/07/2025 4:32:39 PM
CXR
- Small rounded opacity in left lower lung field probably atelectasis or scarring which is seen on prior CT examination of the abdomen.
- Developing pneumonia not excluded.
- Prominent pericardial fat. Stable
08/07/25 CTC PE protocol
- Left lower lobe pulmonary embolus.
- Mild clot burden.
- No evidence of right heart strain.
- Ascending aortic ectasia measuring 4.6 cm.
Last hospitalist admission: DATE OF ADMISSION: 03/21/2025 - DATE OF DISCHARGE: 03/24/2025
DC Dxs:
1. Acute duodenitis with two nonbleeding cratered duodenal ulcers.
2. Cratered esophageal ulcer.
3. Elevated lipase, felt to be due to the duodenitis.
4. Bladder outlet obstruction.
5. Left ureteropelvic junction calculus with left stacey calyceal
dilatation and delayed excretion of contrast.
6. Status post recent right total hip arthroplasty on March 16, 2025.
ASSESSMENT & PLAN
Pending Rx reconciliation
Acute provoked distal PE due to recent urological surgery and recent Covid
- Elevated DD
- mild clot burden
- No CT evidence of RHS
- associated acute hypoxic RI
- Agree with Heparin gtt
- O2 to keep POx > 93 %
- ECHO
- Pul consult
HX duodenitis with two nonbleeding cratered duodenal ulcers( February 2025)
HX Cratered esophageal ulcer
- T & S in case GIB
- Observe Hgb daily while on Heparin gtt
S/p ureteral TP (07/08/25) and stent removal (07/27) at [facility]
HX Ureteral reconstruction with own ileum - hence passage of mucousy urine
Recent HX Covid ( 07/27/25)
DVT Px: Heparin gtt
Full code
IP TLM
[2025-08-07 18:47] LABS: APTT 32.6 Sec (23.4-35.0)
[2025-08-07] MEDS: HEPARIN 6400 UNITS IV (19:33)
[2025-08-07] MEDS: HEPARIN 25000 UNITS/250 ML IV (19:33)
--- NOTE | 2025-08-07 19:43 | EDRN ---
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 the pt tested +covid-19 on 07/27. today is day 11 since pts +covid test. Per admitting hospitalist Dr Omalley, the pt does NOT need a repeat covid test prior to admission.
Per nursing supervisor real estate office [place], the pt is approved to go to a semi-private inpatient room.
[2025-08-07] MEDS: PROTONIX 40 MG PO (21:25)
[2025-08-07] MEDS: FLOMAX 0.4 MG PO (21:25)
[2025-08-07] MEDS: TESSALON PERLES 100 MG PO (21:25)
[2025-08-08 01:53] LABS: APTT 73.9 Sec (23.4-35.0)
[2025-08-08 03:25] VITALS: BP 126/75
[2025-08-08 08:13] VITALS: BP 98/65
[2025-08-08] MEDS: PROSCAR 5 MG PO (08:22)
[2025-08-08] MEDS: PROTONIX 40 MG PO ×2 (08:22→20:59)
[2025-08-08 09:37] LABS: Hematocrit 33.6 % (39.0-52.0); Hemoglobin 11.2 g/dL (13.0-18.0); Mean Corp Hgb Conc. 33.3 g/dL (33.0-37.0); Mean Corpuscular Volume 92.3 fL (80.0-94.0); Platelet Count 361 10^3/uL (130-400); Red Cell Dist. Width 12.8 % (11.5-14.5)
[2025-08-08 09:48] LABS: APTT 36.2 Sec (23.4-35.0)
[2025-08-08 10:03] LABS: Blood Urea Nitrogen 17 mg/dl (9-20); Calcium 9.0 mg/dl (8.4-10.2); Carbon Dioxide 22 mmol/L (22-30); Chloride 103 mmol/L (98-107); Estimated Creatinine Clearance 71 ml/min; Glucose 81 mg/dl (70-99); Potassium 4.9 mmol/L (3.5-5.1); Sodium 134 mmol/L (135-145); eGFR > 60.00
[2025-08-08] MEDS: HEPARIN 6400 UNITS IV (10:16)
[2025-08-08] MEDS: HEPARIN 25000 UNITS/250 ML IV (10:17)
[2025-08-08 11:23] VITALS: BP 102/66
--- NOTE | 2025-08-08 13:42 | CM ---
patient seen at bedside
IA completed
Dx: PE
on heparin gtt
CM consult completed for jeffers check of Eliquis
starter pack - 10mg BID x 7 days, then 5mg BID - spoke with Chery pharmacist at [facility] - she has it in stock & it is covered 0 copay
Patient lives with in a 2 story home, 3 [address], flight to 2nd floor bedroom/bathroom
PLOF: independent, drives works, no assistive device used
DME: cane, walker
Has had [facility] in past (hip sx in past), denies rehab
pcp: Florian Medina
Pharmacy: [facility]
Plan: home, no needs when stable
--- NOTE | 2025-08-08 14:19 | CON.PUL ---
Consultation
Consultation Request
Date/Time Consultation Requested: 08/08/2025
Date/Time Consultation Performed: 08/08/2025
Requesting Provider: Dr. Omlaley
Performing Provider: Dr. Jared Shelley
Reason for Consultation: Acute pulmonary embolism
Medical History
-
History of Present Illness:
65-year-old man with no significant past medical history who presented to the emergency room for evaluation of shortness of breath. Became short of breath with inclines and walking outdoors the day of admission. Noted normal situation for him.
Patient had a total hip replacement in February.
Also reported kidney stone embedded in the ureter and he required urinary transplant at [facility] 07/08/2025.
Post surgery developed COVID 07/27/2025 conservative management was provided.
Currently denies any lightheadedness, chest pain, cough, wheezing or phlegm production.
Evaluation in the emergency room included CT angiogram of the chest that confirmed low burden pulmonary embolism.
-
No previous history of pulmonary embolism
No previous history of cancer
Past Medical History
Past Medical History: Other (See assessment and plan)
Social History
Tobacco: Non-smoker
Alcohol: Occasional
Drug: None
Personal:
Family History
Family History: Reviewed & Not Pertinent
Allergies / Home Medications
Allergies
Allergy/AdvReac Type Severity Reaction Status Date / Time
celecoxib (From Celebrex) AdvReac Intermediate duodenitits, Verified 08/07/25 16:14
pancreatitis
Home Medications
�Medication �Instructions �Recorded �Confirmed �Last Taken �Type
polyethylene glycol 3350 17 gram 17 g PO DAILY 03/21/25 08/07/25 05/04/25 History
oral powder packet (Miralax)
finasteride 5 mg tablet 5 mg PO DAILY #30 tabs 03/24/25 08/07/25 05/05/25 08:30 Rx
tamsulosin 0.4 mg capsule 0.4 mg PO HS #30 caps 03/24/25 08/07/25 05/04/25 19:30 Rx
fluticasone propionate 50 1 spray intranasal DAILY 04/29/25 08/07/25 3 Days Ago History
mcg/actuation nasal ~05/02/25
spray,suspension
methylcellulose (with sugar) oral 1 ea PO DAILY PRN bowel movement 04/29/25 08/07/25 05/04/25 History
powder packet
pantoprazole 40 mg tablet,delayed 40 mg PO BID 04/29/25 08/07/25 05/05/25 08:30 History
release (Protonix)
benzonatate 100 mg capsule 100 mg PO BID PRN Cough 5 days #10 07/27/25 08/07/25 Unknown Rx
caps
acetaminophen 500 mg tablet 1,000 mg PO TID PRN pain 08/07/25 08/07/25 Unknown History
diphenhydramine HCl 25 mg capsule 25 mg PO HS PRN sleep 08/07/25 08/07/25 Unknown History
(Benadryl)
Review of Systems
-
History Source: Patient
All other systems: Negative unless noted
Vitals / Labs / Diagnostic Testing
Vital Signs
Temp Pulse Resp BP Pulse Ox
97.5 F 84 17 102/66 94
08/08/25 11:23 08/08/25 11:23 08/08/25 11:23 08/08/25 11:23 08/08/25 11:23
Lab Data
08/08/25 07:33
08/08/25 07:33
Laboratory Results
08/07/25 08/08/25 08/08/25
18:31 01:35 07:33
APTT 32.6 73.9 H 36.2 H
Diagnostic Testing:
Physical Exam
-
HEENT: Normocephalic
Cardiovascular: S1/S2
Respiratory: Non-Labored Respirations
GI: Soft and Non Distended
Neurology: Awake, Alert and No Motor Deficits
Skin: Warm
General: Comfortable
Assessment
-
65-year-old male with past medical history noted. Presented with shortness of breath for [address] angiogram demonstrated left lower lobe pulmonary embolism. He was admitted for further care and evaluation.
Chest CT 08/07/2025: Left lower lobe pulmonary embolus. Mild clot burden. No evidence of right heart strain.
Ascending aortic ectasia measuring 4.6 cm.
EKG: Sinus rhythm.
Negative cardiac troponin
Left lingular abnormality-possibly atelectatic
Condition present prior to admission:
Left kidney stone
M�ni�re's disease
Total hip arthroplasty 03/16/2025
Ureteral transplant 06/2025
Post COVID 07/27/2025
Assessment and plan:.
Low burden pulmonary embolism.
Presented with shortness of breath
Suspect provoked as the patient had recent surgery as above. Subsequently at the end of June developed COVID.
Negative cardio biomarkers.
Not hypotensive or tachycardic
No oxygen requirement
Doubt there is any significant RV dysfunction.
Echocardiogram has been ordered for baseline. Suspect normal.
-
Will obtain lower extremity Dopplers-Will help risk stratify discharge planning
-
Recommend outpatient pulmonary follow-up. Likely will require 3 months of anticoagulation as this is suspected to be provoked.
-
Small lingular abnormality possibly atelectatic-lung nodule cannot be ruled out.
Suggest repeating CT chest in about 2 to 3 months from now.
-
Will follow-
Hopeful patient can be discharged in the next 24 hours on oral anticoagulants. Will discuss with primary team in the morning.
Would be a possible discharge tomorrow if patient is stable without echocardiogram. Would be an ongoing discussion.
--- NOTE | 2025-08-08 14:55 | W.PN.HOSP.TC ---
Today's Communication/Plan
-
Hep ggt - transition to Eliquis tonight
LE dopplers and risk assessment for ECHO thereafter
Assessment / Plan
Assessment / Plan
Physical Exam
General: Well Developed, Well Nourished, Comfortable and Conversant
HEENT: NormoCephalic, Moist mucous membranes, PERRLA, Nose Appears Normal and Ears Appear Normal
Respiratory: Clear and Non Labored Respirations; No Wheezes, Rales, Rhonchi or Crackles
Cardiac: S1/S2 and Regular Rhythm; No Murmur, Rub or Gallop
GI: Soft, Non Distended, Normal Bowel Sounds and Tender (mild tenderness over surgical incision site )
Musculoskeletal: No Clubbing, No Cyanosis and No Edema
Skin: Warm and IV/Catheter Site
Neuro: Awake and AO x 3
Hematologic/Lymphatic: No Lymphadenopathy
Psych: Calm and Intact Judgment/Insight
#exertional dyspnea
#Pulmonary Embolism
-LLL PE, mild
-LE dopplers
-Pulm consulted
-Cont tele
-switch over to NOAC tonight
- +/- ECHO inpt v outpt
#Hyponatremia
-mild
-monitor
#Hx kidney stone
s/p ureter transplant
- continue finasteride and tamsulosin
Code status: full code
DVT prophylaxis: heparin gtt to eliquis
Anticipated Discharge: 24 - 48 hours
Subjective/Interval History
-
Date of Service: August 08, 2025
no acute events
Objective Data
-
Labs:
Laboratory Results
08/08/25 08/08/25
07:33 16:00
WBC 9.7
Hgb 11.2 L
Hct 33.6 L
Plt Count 361
APTT 36.2 H Pending
Sodium 134 L
Potassium 4.9
Chloride 103
Carbon Dioxide 22
BUN 17
Creatinine 1.1
Glucose 81
Calcium 9.0
Vital Signs:
Vital Signs
Temp Pulse Resp BP Pulse Ox
97.5 F 84 17 102/66 94
08/08/25 11:23 08/08/25 11:23 08/08/25 11:23 08/08/25 11:23 08/08/25 11:23
Review of Systems
-
History Source: Patient
All other systems: Not reviewed unless documented
Data Reviewed
-
CT Scan: Report Reviewed by me
Labs: Labs Reviewed by me
[2025-08-08 15:02] VITALS: BP 129/74
[2025-08-08 17:25] LABS: APTT 68.3 Sec (23.4-35.0)
[2025-08-08] MEDS: HEPARIN 3200 UNITS IV (18:03)
[2025-08-08 19:30] VITALS: BP 113/71
[2025-08-08] MEDS: FLOMAX 0.4 MG PO (20:59)
[2025-08-08] MEDS: ELIQUIS 10 MG PO (20:59)
[2025-08-08] MEDS: TESSALON PERLES 100 MG PO (21:05)
[2025-08-08 23:20] VITALS: BP 102/71
[2025-08-09 03:45] VITALS: BP 116/74
[2025-08-09 06:10] LABS: Hematocrit 33.7 % (39.0-52.0); Hemoglobin 11.0 g/dL (13.0-18.0); Mean Corp Hgb Conc. 32.6 g/dL (33.0-37.0); Mean Corpuscular Volume 92.6 fL (80.0-94.0); Platelet Count 296 10^3/uL (130-400); Red Cell Dist. Width 12.5 % (11.5-14.5)
[2025-08-09 06:52] LABS: ALT (SGPT) 20 U/L (0-50); AST (SGOT) 14 U/L (17-59); Albumin 3.1 g/dl (3.5-5.0); Alkaline Phosphatase 84 U/L (38-126); Blood Urea Nitrogen 16 mg/dl (9-20); Calcium 8.7 mg/dl (8.4-10.2); Carbon Dioxide 24 mmol/L (22-30); Chloride 104 mmol/L (98-107); Estimated Creatinine Clearance 71 ml/min; Glucose 109 mg/dl (70-99); Potassium 4.2 mmol/L (3.5-5.1); Sodium 136 mmol/L (135-145); Total Protein 6.4 g/dl (6.3-8.2); eGFR > 60.00
[2025-08-09 08:06] VITALS: BP 110/73
[2025-08-09] MEDS: PROTONIX 40 MG PO (08:06)
[2025-08-09] MEDS: ELIQUIS 10 MG PO (08:06)
[2025-08-09] MEDS: PROSCAR 5 MG PO (08:06)
[2025-08-09] MEDS: TYLENOL 1000 MG PO (08:06)
--- NOTE | 2025-08-09 11:30 | W.PN.HOSP.TC ---
Addendum entered and electronically signed by Tigre Montero MD 08/09/25 14:33:
[id number]
Original Note:
Today's Communication/Plan
-
Eliquis
ECHO outpatient
no strenuous activity
F/u PCP, Pulm outpt
Assessment / Plan
Assessment / Plan
Physical Exam
General: Well Developed, Well Nourished, Comfortable and Conversant
HEENT: NormoCephalic, Moist mucous membranes, PERRLA, Nose Appears Normal and Ears Appear Normal
Respiratory: Clear and Non Labored Respirations; No Wheezes, Rales, Rhonchi or Crackles
Cardiac: S1/S2 and Regular Rhythm; No Murmur, Rub or Gallop
GI: Soft, Non Distended, Normal Bowel Sounds and Tender (mild tenderness over surgical incision site )
Musculoskeletal: No Clubbing, No Cyanosis and No Edema
Skin: Warm and IV/Catheter Site
Neuro: Awake and AO x 3
Hematologic/Lymphatic: No Lymphadenopathy
Psych: Calm and Intact Judgment/Insight
#exertional dyspnea
#Pulmonary Embolism
#Bilateral lower extremity nonocclusive DVT involving the bilateral common femoral veins
-LLL PE, mild
-likely provoked due to recent surgery
-Trops negative, no o2 requirement
-Pulm consulted
-Cont tele
-switched over to NOAC - likely 3 months
-ECHO outpt
#Hyponatremia, resolved
-mild
-monitor
#Hx kidney stone
s/p ureter transplant
- continue finasteride and tamsulosin
Code status: full code
More than 30 minutes spent in discharge including
Final examination of the patient
Summarizing hospital stay
Instructions for continuing care to all relevant caregivers
Preparation of discharge records, prescriptions, and referral forms
Total time spent (in minutes): 36
Anticipated Discharge: Today
Subjective/Interval History
-
Date of Service: August 09, 2025
no acute events overnight
Objective Data
-
Labs:
Laboratory Results
08/09/25
05:22
WBC 9.2
Hgb 11.0 L
Hct 33.7 L
Plt Count 296
Sodium 136
Potassium 4.2
Chloride 104
Carbon Dioxide 24
BUN 16
Creatinine 1.1
Glucose 109 H
Calcium 8.7
Total Bilirubin 0.3
AST 14 L
ALT 20
Alkaline Phosphatase 84
Vital Signs:
Vital Signs
Temp Pulse Resp BP Pulse Ox
98.3 F 81 17 110/73 96
08/09/25 08:06 08/09/25 08:06 08/09/25 08:06 08/09/25 08:06 08/09/25 08:06
Review of Systems
-
History Source: Patient
All other systems: Not reviewed unless documented
Data Reviewed
-
CT Scan: Report Reviewed by me
Ultrasound: Report Reviewed by me
Labs: Labs Reviewed by me
--- NOTE | 2025-08-09 11:33 | W.DS.TRANS ---
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
-
Discharge Instructions:
Discharge Diagnosis/Procedures #exertional dyspnea
#Pulmonary Embolism
#Bilateral lower extremity nonocclusive DVT
involving the bilateral common femoral veins
Activity No strenuous activity
Additional Activity no strenuous activity or compression stocks
Blood Work cbc and bmp in 1 week with pcp
Others Tests Echocardiogram outpatient
Instructions:
Stand-Alone Forms:
Changes to Home Medications: Yes
Discharge Medications:
DC Medications w/original date entered in [employer]
polyethylene glycol 3350 17 gram oral powder packet (Miralax) 17 g PO DAILY 03/21/25
finasteride 5 mg tablet 5 mg PO DAILY #30 tabs 03/24/25
tamsulosin 0.4 mg capsule 0.4 mg PO HS #30 caps 03/24/25
fluticasone propionate 50 mcg/actuation nasal spray,suspension 1 spray intranasal DAILY 04/29/25
methylcellulose (with sugar) oral powder packet 1 ea PO DAILY PRN bowel movement 04/29/25
pantoprazole 40 mg tablet,delayed release (Protonix) 40 mg PO BID 04/29/25
benzonatate 100 mg capsule 100 mg PO BID PRN Cough 5 days #10 caps 07/27/25
acetaminophen 500 mg tablet 1,000 mg PO TID PRN pain 08/07/25
diphenhydramine HCl 25 mg capsule (Benadryl) 25 mg PO HS PRN sleep 08/07/25
apixaban 5 mg (74 tabs) tablets in a dose pack (Eliquis DVT-PE Treat 30D Start) See Rx Instructions PO .COMPLEX #74 ea 08/09/25
Home Medication Changes
apixaban 5 mg (74 tabs) tablets in a dose pack (Eliquis DVT-PE Treat 30 Start) See Rx Instructions PO .COMPLEX #74 ea 08/09/25
Pending Results: No
[2025-08-09 12:28] VITALS: BP 98/65
== END 2025-08-09 15:37 | disposition home or self-care (01) | DRG 176 ==
LOC: 3 WEST ACU 19:30
PROVIDERS: Nurse Practitioner Family; Nurse Practitioner Gerontology; Physician Assistant; Student in an Organized Health Care Education/Training Program; ADMITTING PHYSICIAN Internal Medicine; ATTENDING PHYSICIAN Internal Medicine; CONSULT PHYSICIAN Internal Medicine Critical Care Medicine; EMERGENCY PHYSICIAN Emergency Medicine; FAMILY PHYSICIAN Family Medicine
DX: I26.99 Other pulmonary embolism without acute cor pulmonale (principal); E87.1 Hypo-osmolality and hyponatremia; I82.413 Acute embolism and thrombosis of femoral vein, bilateral; R09.02 Hypoxemia; I77.810 Thoracic aortic ectasia; Z96.641 Presence of right artificial hip joint; Z87.442 Personal history of urinary calculi; Z86.16 Personal history of COVID-19; Z82.5 Family history of asthma and other chronic lower respiratory diseases; Z88.6 Allergy status to analgesic agent; Z87.19 Personal history of other diseases of the digestive system; Z87.11 Personal history of peptic ulcer disease
CPT/HCPCS: 71046; 71275; 80048; 80053; 84484; 85025; 85027; 85379; 85730; 86850; 86900; 86901; 93005; 93970; 94761; 96365; 99285; Q9967

== ENCOUNTER 2025-08-12 04:08 | Inpatient (IN) | payer BC, SELFPAY ==
[2025-08-11 23:38] VITALS: BP 99/62
[2025-08-12] VITALS (12 sets, daily range): BP systolic 101–117; BP diastolic 60–81; BMI 24.5; BMI 25.0
--- NOTE | 2025-08-12 00:33 | ED.GENMED ---
History of Present Illness
General
Chief Complaint: Fever
Source: patient
Exam Limitations: none
Time Seen by Provider: 08/12/25 00:24
Nursing documentation reviewed up to this point in time: agreed with
History of Present Illness
History of Present Illness:
The patient is a 65-year-old man with a recent ureteral transplant at [place] as well as recently diagnosed pulmonary embolism and DVT, who presents with fevers and chills. Patient reports that he also noticed left flank pain shortly before the
fevers and chills began. Patient reports that the symptoms occurred about 4 to 5 hours prior to arrival to the ED. Patient denies cough and shortness of breath. Patient denies rash and headache. He denies sore throat.
Past History
Past History
ED Past Medical History: Other (Kidney stone)
ED Past Surgical History: Orthopedic and Urological
Social History
Tobacco: Non-smoker
Alcohol: Occasional
Drug: None
Personal:
Living: with family
Employment: Employed
Family History
Family History: Other
Review of Systems
Review of Systems
Allergies reviewed?: Yes
All Other Systems: ROS reviewed and negative except as documented in HPI and ROS
Constitutional: Reports fever and chills
EENT: Reports no symptoms
Respiratory: Reports no symptoms
Cardiac: Reports no symptoms
ABD/GI: Reports no symptoms
: Reports flank pain
Musculoskeletal: Reports no symptoms
Skin: Reports no symptoms
Neurological: Reports no symptoms
Endocrine: Reports no symptoms
Hematologic/Lymphatic: Reports no symptoms
Psychiatric: Reports no symptoms
Phy Exam
Physical Exam
Physical Exam:
Physical Exam
General: Patient appears diaphoretic but conversational
Neck: supple. no meningeal signs. normal psoterior pharynx
Heart: s1/s2 regular rate and rhythm, no murmur. equal radial pulses.
Lungs: no acute respiratory distress. clear bilaterally
Abdomen: Normal bowel sounds. Left flank tenderness
Neuro: alert and oriented. no focal neurological deficits
Skin: no rash
Psychiatric: well kept. interactive and cooperative
Extremities: no edema. no calf tenderness. negative homans. good distal pulses
Sepsis
Sepsis Screening
Sepsis Assessment: Sepsis
Sepsis Screen
Sepsis Screen: Sepsis
Date: 08/12/25
Time: 02:50
Course
Orders/Labs/Results
Orders:
Orders
08/12/25 00:39
Complete Blood Count/With Diff Urgent
Comprehensive Metabolic Panel Urgent
Lactic Acid Q4H
Comment: CANCEL 2nd LACTIC ACID IF 1st LACTIC ACID IS LESS THAN 2
Urinalysis Reflex To Culture Urgent
Date Specimen was Collected: 08/12/25
Time Specimen was Collected: 00:38
Urine Microscopic Reflex Cult Urgent
Blood Culture Q30M
BARBRA Source: Blood/Venous
Specimen Description:
Influenza A+B Rapid Molecular Urgent
BARBRA Source: Nasal Swab
Specimen Description:
Urine Culture Urgent
BARBRA Source: U
Specimen Description:
Date Specimen was Collected: 08/12/25
Time Specimen was Collected: 00:38
08/12/25 00:41
0.9% Sodium Chloride 1000 ml [Nss] 2,400 ml IV NOW STA
08/12/25 00:42
Vancomycin [Vancocin] 2,000 mg 0.9% Sodium Chloride 500 ml [Nss] 500 ml IV NOW
08/12/25 00:43
Piperacillin/Tazo 4.5 Gram [Zosyn] 4.5 gram in 100 ml IV NOW
08/12/25 01:00
Blood Culture Q30M
BARBRA Source: Blood/Venous
Specimen Description:
08/12/25 01:38
CT Abd/pelvis W Iv Cont Urgent
Comment:
Reason For Exam: L flank pain, fever
08/12/25 02:14
Acetaminophen [Tylenol] 1,000 mg PO NOW STA
08/12/25 04:45
Lactic Acid Q4H
Comment: CANCEL 2nd LACTIC ACID IF 1st LACTIC ACID IS LESS THAN 2
Abnormal Lab Results
08/12/25
00:39
WBC 12.1 H 10^3/uL
(4.8-10.8)
RBC 3.64 L 10^6/uL
(4.70-6.10)
Hgb 10.8 L g/dL
(13.0-18.0)
Hct 32.3 L %
(39.0-52.0)
Abs Immat Gran (auto) 0.1 H 10^3/uL
(0-0.05)
Absolute Neuts (auto) 10.1 H 10^3/uL
(1.4-6.5)
Absolute Lymphs (auto) 0.8 L 10^3/uL
(1.2-3.4)
Absolute Monos (auto) 1.1 H 10^3/uL
(0.1-0.6)
Neutrophils % 83.3 H %
(42.2-75.2)
Lymphocytes % 6.8 L %
(20.5-51.1)
Sodium 132 L mmol/L
(135-145)
Carbon Dioxide 20 L mmol/L
(22-30)
BUN 23 H mg/dl
(9-20)
Glucose 118 H mg/dl
(70-99)
Albumin 3.3 L g/dl
(3.5-5.0)
Ur Occult Blood Reflex 4+ A
(Negative)
Leukocyte Esterase Rfl 3+ A
(Negative)
Urine WBC (Reflex) >100 A /HPF
(0-5)
Urine Bacteria (Reflex) Many A
(Negative)
Urine Albumin (Reflex) 2+ A
(Neg - Trace)
08/12/25 00:39
08/12/25 00:39
Vital Signs
Initial and Last Documented VS:
Initial Vital Signs
Temp Pulse Resp BP Pulse Ox
101.7 F H 106 24 99/62 98
08/11/25 23:38 08/11/25 23:38 08/11/25 23:38 08/11/25 23:38 08/11/25 23:38
Last Documented Vital Signs
Temp Pulse Resp BP Pulse Ox
101.7 F H 81 20 108/63 97
08/11/25 23:38 08/12/25 01:00 08/12/25 01:00 08/12/25 02:30 08/12/25 02:30
MDM/Problems Addressed
Differential Diagnosis Includes:
Urosepsis, renal abscess, intra-abdominal abscess
MDM/Problems Addressed:
Patient presents with acute fever and flank pain
Chronic conditions affecting care: Previous abdomnial surgery
Acute Exacerbation and/or Progression of Chronic Illness:
Patient could have an acute development of a renal abscess or intra-abdominal abscess given his recent abdominal surgery
*Pulse Oximetry
SaO2: 98
Oxygen Mode of Delivery: Room air
Patient hypoxic: no
*EKG
Interpreted by ED Provider?: NA
*Fruit Coordinator Interpretation
Rate: normal
Interpretation: normal
Rhythm: sinus
*Critical Care Note
Total Time (30-74mins, 75-104mins- exclusive of procedures): 35 minutes of critical ca (35 minutes of critical care given to patient including reassessing his blood pressure, heart rate, reviewing his lab work and CT report)
Data Reviewed
Review of Other/Old Records Reveals: Discharge Summary (Note reviewed from 08/09/2025 when patient was admitted for shortness of breath and PE)
Source: patient and spouse
Patient Management
Social determinants of health affecting care: Living situation and Strong social support
Discussion with other providers: Hospitalist
ED Attending Note
-
Portions of this chart may have been created with voice recognition software.� Occasional wrong word or��sound alike� substitutions may have occurred due to the inherent limitations of voice recognition software.
Discharge Plan
Departure
Patient Disposition: Admit
Date of Disposition: 08/12/25
Time of Disposition: 02:15
Admit to: Med/Surg
Presentation/result/management discussed w/ accepting MD/DO: Hospitalist
Patient with high blood pressure during this ER visit?: No
Condition: Good
Covid-19: Not Applicable
Discharge Problem:
Acute pyelonephritis, Fever
Prescriptions:
No Action
polyethylene glycol 3350 [Miralax] 17 gram Powder In Packet
17 g PO DAILY
tamsulosin 0.4 mg Capsule
0.4 mg PO HS Qty: 30 3RF
finasteride 5 mg Tablet
5 mg PO DAILY Qty: 30 3RF
fluticasone propionate 50 mcg/actuation [place],Suspension
1 spray INTRANASAL DAILY
methylcellulose (with sugar) Powder In Packet
1 ea PO DAILY PRN (Reason: bowel movement)
pantoprazole [Protonix] 40 mg tablet,delayed release (DR/EC)
40 mg PO BID
benzonatate 100 mg capsule
100 mg PO BID PRN (Reason: Cough) 5 Days Qty: 10 0RF
acetaminophen 500 mg Tablet
1,000 mg PO TID PRN (Reason: pain)
diphenhydramine HCl [Benadryl] 25 mg Capsule
25 mg PO HS PRN (Reason: sleep)
Eliquis DVT-PE Treat 30D Start 5 mg (74 tabs) tablets,dose pack
See Rx Instructions .ROUTE .COMPLEX Qty: 74 0RF
Rx Instructions:
orally per package directions
Referrals:
Florian Medina MD [Family Provider, Cardiology]
Interventions
Interventions:
*Risk Screen - Suicide Last Done: 08/11/25 23:38
ED- Neurological Assessment Last Done: 08/12/25 00:30
Discharge Date and Time
Print Language: CAPE VERDE[place]
[2025-08-12] MEDS: NSS 2400 ML IV (00:58)
[2025-08-12 01:03] LABS: Urine Character Slightly Cloudy (Clear)
[2025-08-12 01:05] LABS: Hematocrit 32.3 % (39.0-52.0); Hemoglobin 10.8 g/dL (13.0-18.0); Mean Corp Hgb Conc. 33.4 g/dL (33.0-37.0); Mean Corpuscular Volume 88.7 fL (80.0-94.0); Nucleated Red Blood Cells % 0 % (-); Platelet Count 355 10^3/uL (130-400); Red Cell Dist. Width 12.5 % (11.5-14.5)
[2025-08-12] MEDS: ZOSYN 100 IV (01:08)
[2025-08-12 01:22] LABS: Urine Red Blood Cell 0-2 /HPF (0-2); Urine Squamous Cell 0-2 /LPF (Few); Urine White Cell >100 /HPF (0-5)
[2025-08-12 01:32] LABS: ALT (SGPT) 20 U/L (0-50); AST (SGOT) 18 U/L (17-59); Albumin 3.3 g/dl (3.5-5.0); Alkaline Phosphatase 89 U/L (38-126); Blood Urea Nitrogen 23 mg/dl (9-20); Calcium 8.6 mg/dl (8.4-10.2); Carbon Dioxide 20 mmol/L (22-30); Chloride 103 mmol/L (98-107); Estimated Creatinine Clearance 65 ml/min; Glucose 118 mg/dl (70-99); Potassium 4.4 mmol/L (3.5-5.1); Sodium 132 mmol/L (135-145); Total Protein 6.7 g/dl (6.3-8.2); eGFR > 60.00
[2025-08-12] MEDS: VANCOCIN 540 MG IV (02:23)
--- NOTE | 2025-08-12 03:11 | HPS.HSE ---
Family Physician
-
Family Physician: Florian Medina
Chief Complaint
-
Fever
History of Present Illness
65-year-old with a fairly complex past urological history presents to the emergency department with fever and left-sided flank discomfort.
Patient has a history of nephrolithiasis with recent left kidney stones. Attempted stone extraction resulting ureteral stricture or damage. Ultimately patient was referred to specialist at [facility] and underwent a ureteral transplant
whereby the original ureter was replaced with intestinal tissue between the kidney and the bladder in june. Patient initially had a urostomy tube prior to his procedure. Urostomy tube was removed and patient underwent procedure. After the
procedure patient had significant mucus secretions from the urine and obstruction. He had a stent placed. The stent was removed on August 04. Since removal of the stent patient had been doing well although he still seen the mucus. He reports
that he has been having mild left-sided flank discomfort since stent removal. Today he went to see his PMD and was afebrile in usual state of health. By the time he arrived home he noticed chills and fevers and ongoing mild left-sided flank pain.
He denies any acute urinary symptoms such as dysuria or urgency. He did note that these had recent episodes of urinary frequency.
He is specialist at [place] is Dr. Keny Hargrove.
In the interim patient has had episode of COVID, and venous thrombosis for which he is currently on Eliquis.
On arrival to the emergency department he was febrile to 111.7, blood pressure was 108/65 with a pulse of 82 and satting at 7% on room air.
A white count was 2.1 with normal hemoglobin and platelets. Sodium was 132, the rest of her electrolytes were normal. BUN and creatinine were preserved at 23 and 1.2 with normal glucose. UA is markedly positive with leukocyte esterase, many
bacteria and many WBCs.
CT of the abdomen pelvis showing moderate left hydronephrosis and hydroureter with mild urothelial thickening and perinephric stranding concerning for ascending urinary tract infection.
Postoperative changes with reimplantation of the left ureter in the anterior left bladder. No stones.
Medical History
Past Medical History
Past Medical History: Reports Other
Additional Past Medical History:
left kidney stone
Meniere's disease
Provoked PE and DVT
Past Surgical History: Reports Other
Additional Past Surgical History:
Right total hip arthroplasty 03/16/2025
ureteral transplant
Social History
Tobacco: Non-smoker
Alcohol: Occasional (Last drink was 2 weeks ago)
Drug: None
Personal:
Living: With Family
Employment: Employed
Family History
Family History: Not pertinent and Other (Father: COPD)
Allergies / Home Medications
Allergies reflects when Allergies were last updated in [employer].
Home Medications with original date entered in [employer]
Allergy/Medication List:
Allergies
Allergy/AdvReac Type Severity Reaction Status Date / Time
celecoxib (From Celebrex) AdvReac Intermediate duodenitits, Verified 08/11/25 23:38
pancreatitis
Home Medications
polyethylene glycol 3350 17 gram oral powder packet (Miralax) 17 g PO DAILY 03/21/25
finasteride 5 mg tablet 5 mg PO DAILY #30 tabs 03/24/25
tamsulosin 0.4 mg capsule 0.4 mg PO HS #30 caps 03/24/25
fluticasone propionate 50 mcg/actuation nasal spray,suspension 1 spray intranasal DAILY 04/29/25
methylcellulose (with sugar) oral powder packet 1 ea PO DAILY PRN bowel movement 04/29/25
pantoprazole 40 mg tablet,delayed release (Protonix) 40 mg PO BID 04/29/25
benzonatate 100 mg capsule 100 mg PO BID PRN Cough 5 days #10 caps 07/27/25
acetaminophen 500 mg tablet 1,000 mg PO TID PRN pain 08/07/25
diphenhydramine HCl 25 mg capsule (Benadryl) 25 mg PO HS PRN sleep 08/07/25
apixaban 5 mg (74 tabs) tablets in a dose pack (Eliquis DVT-PE Treat 30D Start) See Rx Instructions PO .COMPLEX #74 ea 08/09/25
Review of Systems
-
History Source: Patient
Constitutional: Reports Fever
EENT: Reports No Symptoms
Respiratory: Reports No Symptoms
Cardiac: Reports No Symptoms
Abdomen/GI: Reports No Symptoms
: Reports Flank Pain
Musculoskeletal: Reports No Symptoms
Skin: Reports No Symptoms
Neurological: Reports No Symptoms
Endocrine: Reports No Symptoms
Hematologic/Lymphatic: Reports No Symptoms
Psych: Reports No Symptoms
Physical Exam
Vital Signs
Vital Signs
Temp Pulse Resp BP Pulse Ox
101.7 F H 81 20 108/63 97
08/11/25 23:38 08/12/25 01:00 08/12/25 01:00 08/12/25 02:30 08/12/25 02:30
Physical Exam
General: Well Developed, Well Nourished, No Apparent Distress and Comfortable
HEENT: NormoCephalic, Anicteric and Moist mucous membranes
Respiratory: Clear
Cardiac: S1/S2 and Regular Rhythm
Breast: Deferred by me
GI: Non Distended, Normal Bowel Sounds and Tender
Rectal: Deferred by Provider
Genito-urinary: Deferred by me
Musculoskeletal: No Clubbing, No Cyanosis and No Edema
Skin: Warm
Neuro: AO x 3 and Nonfocal/grossly intact
Hematologic/Lymphatic: No Lymphadenopathy
Laboratory Results
-
08/12/25 00:39
08/12/25 00:39
Laboratory Results
Lactic Acid 1.3 mmol/L (0.7-2.0) 08/12/25 00:39
Total Bilirubin 0.3 mg/dl (0.2-1.3) 08/12/25 00:39
AST 18 U/L (17-59) 08/12/25 00:39
ALT 20 U/L (0-50) 08/12/25 00:39
Alkaline Phosphatase 89 U/L (38-126) 08/12/25 00:39
Data Reviewed
-
CT Scan: Report Reviewed by me
Lab Data: Labs Reviewed by me
Old Records: Reviewed
Impression/Plan
-
IMPRESSION:
This is a 65-year-old with past medical history of nephrolithiasis, BPH, recent DVT and most relevantly recent left ureteral transplant with autologous intestinal segment at [place] s/p stenting and removal of the stent Aug 04. He has
fever, L flank pain, mild hydro c/w pyelonephritis. No clear obstructive tissue/stone on CT scan and patient is non-toxic appearing.
PLAN:
Pyelonephritis -complicated left pyelonephritis given history of intestinal left ureteral transplant. No definite obstruction on CT scan but cannot rule out giving moderate left hydronephrosis and hydroureter.
-Admit to [facility]
-Blood and urine culture sent
-Viral panel negative
-Will continue with IV Zosyn for now
-MRSA swab
-Monitor ins and outs
- continue finasteride/tamsulosin
-d/w Dr. Lion. Abx ok, no indication for transfer or any procedure
PE - Hx of provoked VTE
- continue eliquis 5 bid for now
Gastric ulcer
- continue ppi bid
DVT PPX - on apixaban
Code status - Full Code
[2025-08-12 06:09] LABS: Hematocrit 32.7 % (39.0-52.0); Hemoglobin 10.4 g/dL (13.0-18.0); Mean Corp Hgb Conc. 31.8 g/dL (33.0-37.0); Mean Corpuscular Volume 95.9 fL (80.0-94.0); Platelet Count 337 10^3/uL (130-400); Red Cell Dist. Width 12.6 % (11.5-14.5)
[2025-08-12 06:33] LABS: Blood Urea Nitrogen 18 mg/dl (9-20); Calcium 8.0 mg/dl (8.4-10.2); Carbon Dioxide 21 mmol/L (22-30); Chloride 107 mmol/L (98-107); Estimated Creatinine Clearance 71 ml/min; Glucose 116 mg/dl (70-99); Potassium 4.1 mmol/L (3.5-5.1); Sodium 135 mmol/L (135-145); eGFR > 60.00
[2025-08-12] MEDS: PROSCAR 5 MG PO (07:44)
[2025-08-12] MEDS: PROTONIX 40 MG PO ×2 (07:44→20:16)
[2025-08-12] MEDS: ZOSYN 50 IV ×3 (07:44→20:16)
--- NOTE | 2025-08-12 11:00 | W.PN.HOSP.TC ---
Today's Communication/Plan
-
Continue antibiotics pending culture
Assessment / Plan
Assessment / Plan
Impression:
This is a 65-year-old with past medical history of nephrolithiasis, BPH, recent DVT and most relevantly recent left ureteral transplant with autologous intestinal segment at [place] s/p stenting and removal of the stent Aug 04. He has
fever, L flank pain, mild hydro c/w pyelonephritis. No clear obstructive tissue/stone on CT scan and patient is non-toxic appearing.
Complicated UTI/pyelonephritis
Conditions prior to admission:
Recent hospitalization with provoked DVT and PE.
Recent COVID-19 infection
History of gastric ulcer
Plan
Complicated UTI/pyelonephritis with above history
CT scan:
New mild left hydronephrosis, wall thickening and enhancement of the left collecting system suggesting urinary tract infection.
New postsurgical change of the left ureter with reimplantation along the anterior left bladder. Tiny suspected postoperative seroma along the anterior left psoas muscle.
Severe left hydroureter. New.
Right parapelvic renal cysts. Stable.
Moderate fecal material throughout the colon. Progressed.
Moderate prostate hypertrophy. Stable
Urology consulted with no indication for surgical intervention.
Continue IV antibiotics/Zosyn pending urine culture
Bladder scan
BPH: Continue Flomax and Proscar.
Provoked thromboembolism with bilateral lower extremity DVT and PE.
Stable respiratory status
Continue Eliquis
History of peptic ulcer disease
Continue PPI
Anticipated Discharge: 24 - 48 hours
Subjective/Interval History
-
Date of Service: August 12, 2025
Objective Data
-
Labs:
Laboratory Results
08/12/25 08/12/25
00:39 05:55
WBC 12.1 H 12.5 H
Hgb 10.8 L 10.4 L
Hct 32.3 L 32.7 L
Plt Count 355 337
Sodium 132 L 135
Potassium 4.4 4.1
Chloride 103 107
Carbon Dioxide 20 L 21 L
BUN 23 H 18
Creatinine 1.2 1.1
Glucose 118 H 116 H
Calcium 8.6 8.0 L
Total Bilirubin 0.3
AST 18
ALT 20
Alkaline Phosphatase 89
Vital Signs:
Vital Signs
Temp Pulse Resp BP Pulse Ox
99.6 F 89 19 105/72 97
08/12/25 08:25 08/12/25 08:25 08/12/25 08:25 08/12/25 08:25 08/12/25 08:25
Physical Exam
-
General: Well Developed and No Apparent Distress
HEENT: Normocephalic, Atraumatic and Moist Mucous Membranes
Respiratory: Clear to Auscultation
Cardiac: Regular Rhythm and S1/S2; Negative Murmur, Rub or Gallop
GI: Soft, Nontender, Nondistended and Normal Bowel Sounds; Negative Organomegaly
Rectal: Deferred by Provider
Musculoskeletal: No Clubbing, No Cyanosis and No Edema
Skin: Negative Rash
Neuro: Nonfocal/Grossly Intact
--- NOTE | 2025-08-12 11:13 | W.PN.URO.CBU ---
Today's Communication / Plan
-
no s=changes as of now
Assessment / Plan
-
ct scan suggest left pyelo the hydropnephrosis is common and not indicative of obstruction but if pt does not improve on iv abs then studies for obstruction ie renal scan may be necessary or placement ortega may decrease reflux and therefore
may also be therapeutic For now await cxs and cotinue iv abs
Diagnosis
-
Date of Service: August 12, 2025
-
LEFT PYELONEPHRITIS S/P ILIEAL SUBSTITUTIONLEFT URETER S/P AUG 04 STENT REMOVAL:
Post Op Day:
Subjective
-
FEVER IMPROVED
Objective
-
Vital Signs
Temp Pulse Resp BP Pulse Ox
99.6 F 89 19 105/72 97
08/12/25 08:25 08/12/25 08:25 08/12/25 08:25 08/12/25 08:25 08/12/25 08:25
Laboratory Results
08/12/25 05:55
08/12/25 05:55
Review of Systems
-
: Frequency and Flank Pain
Physical Exam
-
General - well developed, well nourished, no acute distress no toxic
Chest - clear bilaterally
Abdomen - soft, non-tender, positive bowel sounds, no CVAT, no incisional pain or distention
Genitalia - normal
Rectal - normal
Skin - warm & dry with no rash
Neuro - AOx3, no motor deficits
Extremities - no clubbing, no cyanosis, no edema
Incision - clean, dry
Dressing - clean, dry, intact
Counseling
-
no gu chages
Care Review
Data Reviewed
Discussed with: Hospitalist
CT Scan: Image Pers Reviewed
[2025-08-12] MEDS: ELIQUIS 10 MG PO ×2 (11:23→20:16)
--- NOTE | 2025-08-12 14:39 | CM ---
CM met with patient who lives with his in a 2 story home; 3 entry steps with a full flight to 2nd floor bedroom/bathroom.
Pt reports independence in ambulation/ADLs, has a cane and a walker, but not currently using DME.
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
Plan: home, no needs when medically stable.
PCP: Florian Medina
Ph[facility]acy: [facility]
[2025-08-12] MEDS: FLOMAX 0.4 MG PO (21:14)
[2025-08-12] MEDS: TESSALON PERLES 100 MG PO (21:53)
[2025-08-13] MEDS: ZOSYN 50 IV ×4 (02:39→21:00)
[2025-08-13 05:50] VITALS: BMI 24.6
[2025-08-13 06:07] LABS: Hematocrit 30.3 % (39.0-52.0); Hemoglobin 9.7 g/dL (13.0-18.0); Mean Corp Hgb Conc. 32.0 g/dL (33.0-37.0); Mean Corpuscular Volume 91.3 fL (80.0-94.0); Nucleated Red Blood Cells % 0 % (-); Platelet Count 347 10^3/uL (130-400); Red Cell Dist. Width 12.6 % (11.5-14.5)
[2025-08-13 06:22] LABS: Blood Urea Nitrogen 15 mg/dl (9-20); Calcium 8.4 mg/dl (8.4-10.2); Carbon Dioxide 22 mmol/L (22-30); Chloride 107 mmol/L (98-107); Estimated Creatinine Clearance 71 ml/min; Glucose 102 mg/dl (70-99); Potassium 4.1 mmol/L (3.5-5.1); Sodium 135 mmol/L (135-145); eGFR > 60.00
[2025-08-13 07:55] VITALS: BP 106/59
[2025-08-13] MEDS: PROSCAR 5 MG PO (08:31)
[2025-08-13] MEDS: PROTONIX 40 MG PO ×2 (08:31→21:00)
[2025-08-13] MEDS: ELIQUIS 10 MG PO ×2 (08:31→21:00)
--- NOTE | 2025-08-13 10:23 | PN.CDI ---
CDI
- -
CDI:
Physician Documentation Request
Admit Date: 08/12/25 04:08
Dear Doctor Galen,
Please review the following and provide your response in the progress notes.
Clinical Indicators:
Pt admitted with Complicated UTI/pyelonephritis.
08/12 ER: ' Patient reports that he also noticed left flank pain shortly before the fevers and chills began. Patient reports that the symptoms occurred about 4 to 5 hours prior to arrival to the ED.'
Selected Entries
08/11/25
23:38 08/12/25
23:00
Temp 101.7 F H 100.6 F H
Pulse 106 94
Laboratory Tests
08/12/25 08/12/25
00:39 05:55
WBC 12.1 H 12.5 H
Please clarify which of the following most accurately describes the status of the patient's infection:
Sepsis
- Systemic manifestations of infection, with 2 or more SIRS criteria which include:
- Fever >100.9 degrees F or hypothermia < 96.8 degrees F
- Leukocytosis - WBC > 12,000 or leukopenia - WBC < 4,000 or > 10% bands
- Tachycardia > 90 beats per minute
- Tachypnea - RR > 20 breaths per minute or PaCO2 , 32mmHg
Source: Merck Manual 2013
- Indicate the known or suspected organism
- Indicate the known or suspected underlying infection, such as UTI, pneumonia or cellulitis
- Indicate if a suspected bacterial infection of unknown source
- Indicate if associated with an implanted device such as a F/C, PICC line, orthopedic hardware, etc.
Pyelonephritis Only, Without Systemic Illness
Other
Use of terms such as suspected, likely, concern for, or probable (associated with a specific diagnosis that is being evaluated, monitored, or treated as if it exists) are acceptable and can be coded in the inpatient setting, when documented at the
time of discharge.
Thank you,
Dominique Ram RN, BSN
CDI Specialist
[place] [facility]
Please use your independent medical judgment in providing your response.
[2025-08-13] MEDS: TYLENOL 650 MG PO (10:31)
--- NOTE | 2025-08-13 14:23 | CON.ID ---
Consultation
-
Date/Time Consultation Requested: August 13, 2025 1109
Date/Time Consultation Performed: August 13, 2025 1425
Requesting Provider: Dr. Bernabe Aaron
Performing Provider: Dr. Leilani Enriquez
Reason for Consultation: Complicated UTI
Chief Complaint / Past History
Chief Complaint
Fever and flank pain
History of Present Illness
65-year-old male with recent history of left ureteral transplant presented to the hospital on August 11 due to acute onset of left flank pain, fevers, and chills. Patient's history dated back to February 2025 when he developed severe reaction to the
Celebrex after total hip replacement. CAT scan of the abdomen showed incidental finding of kidney stone embedded in the left ureter. Subsequently stone was removed but sustained damage to the ureter with stricture requiring percutaneous
nephrostomy.. On July 08, 2025, he underwent left ureter transplant with his own ileal intestine at [place]. Postop he did require stent placement due to obstruction from significant mucous secretion from the ileal ureter. Stent was removed
on August 04. Patient was recently hospitalized August 07 to August 09 with bilateral DVT and PE. He was doing well until 3 days ago when he developed sudden onset of fevers and chills with associated left flank pain. No gross hematuria. No
dysuria. In the ER temperature one 101.7, white count 12.1. CT of the abdomen pelvis shows mild left hydronephrosis with enhancement of the left collecting system, severe left hydro ureter. Urine culture growing gram-negative aureliano. He is
currently on Zosyn. Today patient reports left flank pain has improved since being in the hospital. No further chills. No history of frequent UTI.
Past History
Additional Past Medical History:
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
COVID19 (07/27/25)
PE/BLE DVT (08/07/25)
Meniere's
Right total hip arthroplasty 03/16/25
Allergy History:
celecoxib (From Celebrex) Adverse Reaction (Intermediate, Verified 08/11/25 23:38)
duodenitits, pancreatitis
Medications Reviewed: Yes
Current Antibiotics:
Zosyn day 3
Social History
Tobacco: Non-Smoker
Alcohol: Occasional
Drug: None
Personal:
Review of Systems
Review of Systems
General: Fever, Chills and Change in Appetite
HEENT: Negative Sinus Problems or Headache
Cardiovascular: Negative Chest Pain or Dyspnea
Respiratory: Negative Dyspnea or Cough
Gasteroenterology: Negative Nausea, Vomiting or Diarrhea
Genital / Urological: Negative Dysuria
Endocrine: Weakness
All systems: All other systems were reviewed and were negative
Vital Signs
Temp Pulse Resp BP Pulse Ox
97.7 F 89 16 106/59 97
08/13/25 11:26 08/13/25 07:55 08/13/25 07:55 08/13/25 07:55 08/13/25 09:10
Selected Entries
08/11/25
23:38 08/12/25
23:00
Temp 101.7 F H 100.6 F H
Physical Exam
Physical Exam
Constitutional: No Acute Distress and Comfortable
Eyes: No Conjunctival Hemorrhage and Sclera Anicteric
Cardiovascular: Regular Rate and S1/S2
Pulmonary: Clear
Gastrointestinal: Soft, Non Tender, Non Distended and Normal Bowel Sounds
Genito-Urinary: Negative Suprapubic Tenderness or CVA Tenderness
Extremities: Negative Edema
Neurological: AO x 3
Lab / Diagnostic Study Results
08/13/25 05:16
08/13/25 05:16
Abs Immat Gran (auto) 0.0 10^3/uL (0-0.05) 08/13/25 05:16
Absolute Neuts (auto) 6.9 10^3/uL (1.4-6.5) H 08/13/25 05:16
Absolute Lymphs (auto) 1.3 10^3/uL (1.2-3.4) 08/13/25 05:16
Absolute Monos (auto) 1.1 10^3/uL (0.1-0.6) H 08/13/25 05:16
Absolute Basos (auto) 0.0 10^3/uL (0-0.2) 08/13/25 05:16
Immature Gran % 0.4 % (0-0.5) 08/13/25 05:16
Neutrophils % 73.1 % (42.2-75.2) 08/13/25 05:16
Lymphocytes % 13.5 % (20.5-51.1) L 08/13/25 05:16
Monocytes % 12.0 % (1.7-9.3) H 08/13/25 05:16
Eosinophils % 0.8 % (0-6) 08/13/25 05:16
Basophils % 0.2 % (0-2) 08/13/25 05:16
Lactic Acid Cancelled 08/12/25 04:45
Ur Squamous Epith Cells 0-2 /LPF (Few) 08/12/25 00:39
Microbiology Results
Micro:
08/12/25 00:39 Urine Culture - Preliminary
Urine Gram negative bacilli
08/12/25 01:00 Blood Culture - Preliminary
Blood/Venous No Growth in 24 hours- Final report to follow
08/12/25 00:39 Blood Culture - Preliminary
Blood/Venous No Growth in 24 hours- Final report to follow
08/12/25 00:39 Influenza Types A & B (JOYA) - Final
Nasal Swab Negative for Influenza A & B, NAAT
Negative results must be combined with clinical observations
and patient history.
Nucleic Acid Amplification test (NAAT)performed on the
[employer] platform.
08/12/25 CT a/p: New mild left hydronephrosis, wall thickening and enhancement of the left collecting system suggesting urinary tract infection. New postsurgical change of the left ureter with reimplantation along the anterior left bladder. Tiny
suspected postoperative seroma along the anterior left psoas muscle. Severe left hydroureter. New.
Assessment / Plan
# Complicated UTI/left pyelo
# Fever resolving
# Leukocytosis resolved
# Recent hx left ureter transplant 07/08/25
- Bcx's neg
- Ucx GNR
- Continue Zosyn.
- Will de-escalate to po abx when cx data available.
- Follow temps
#Conditions present on admission:
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
COVID19 (07/27/25)
PE/BLE DVT (08/07/25)
Meniere's
Right total hip arthroplasty 03/16/25
[2025-08-13 15:14] VITALS: BP 108/64
--- NOTE | 2025-08-13 15:27 | W.PN.HOSP.TC ---
Today's Communication/Plan
-
Continue antibiotics monitoring temperature curve.
Follow WBC
Follow final cultures (preliminary gram-negative bacilli)
ID consultation
Assessment / Plan
Assessment / Plan
Impression:
This is a 65-year-old with past medical history of nephrolithiasis, BPH, recent DVT and most relevantly recent left ureteral transplant with autologous intestinal segment at [place] s/p stenting and removal of the stent Aug 04. He has
fever, L flank pain, mild hydro c/w pyelonephritis. No clear obstructive tissue/stone on CT scan and patient is non-toxic appearing.
Complicated UTI/pyelonephritis
Conditions prior to admission:
Recent hospitalization with provoked DVT and PE.
Recent COVID-19 infection
History of gastric ulcer
Plan
Complicated UTI/pyelonephritis with above history
CT scan:
New mild left hydronephrosis, wall thickening and enhancement of the left collecting system suggesting urinary tract infection.
New postsurgical change of the left ureter with reimplantation along the anterior left bladder. Tiny suspected postoperative seroma along the anterior left psoas muscle.
Severe left hydroureter. New.
Right parapelvic renal cysts. Stable.
Moderate fecal material throughout the colon. Progressed.
Moderate prostate hypertrophy. Stable
Urology consulted with no indication for surgical intervention.
Continue IV antibiotics/Zosyn pending urine culture
Bladder scan
BPH: Continue Flomax and Proscar.
Provoked thromboembolism with bilateral lower extremity DVT and PE.
Stable respiratory status
Continue Eliquis
History of peptic ulcer disease
Continue PPI
Anticipated Discharge: 24 - 48 hours
Subjective/Interval History
-
Date of Service: August 13, 2025
Objective Data
-
Labs:
Laboratory Results
08/13/25
05:16
WBC 9.5
Hgb 9.7 L
Hct 30.3 L
Plt Count 347
Sodium 135
Potassium 4.1
Chloride 107
Carbon Dioxide 22
BUN 15
Creatinine 1.1
Glucose 102 H
Calcium 8.4
Vital Signs:
Vital Signs
Temp Pulse Resp BP Pulse Ox
97.9 F 72 18 108/64 97
08/13/25 15:14 08/13/25 15:14 08/13/25 15:14 08/13/25 15:14 08/13/25 15:14
I&O
08/12/25 08/13/25 08/14/25
06:59 06:59 06:59
Intake Total 1200 / 1200
Balance 1200 / 1200
Physical Exam
-
General: Well Developed and No Apparent Distress
HEENT: Normocephalic, Atraumatic and Moist Mucous Membranes
Respiratory: Clear to Auscultation
Cardiac: Regular Rhythm and S1/S2; Negative Murmur, Rub or Gallop
GI: Soft, Nontender, Nondistended and Normal Bowel Sounds; Negative Organomegaly
Rectal: Deferred by Provider
Musculoskeletal: No Clubbing, No Cyanosis and No Edema
Skin: Negative Rash
Neuro: Nonfocal/Grossly Intact
--- NOTE | 2025-08-13 15:53 | PN.CDI ---
CDI
- -
CDI:
Physician Documentation Request
Admit Date: 08/12/25 04:08
Dear Doctor Galen,
Please review the following and provide your response in the progress notes.
Clinical Indicators:
Pt admitted with Complicated UTI/pyelonephritis.
08/12 Registered Dietitian Note: ' Consult weight loss....CBW (08/12) 179lb 6oz BMI 25 overwt/ht
Weight hx- (03/21) 203lb 7oz
UBW reported ~209lb in June reflecting significant 16.7% wt loss x 30days...
Pt meets criteria for severe protein calorie malnutrition of chronic illness with >5% wt loss in 1 month, prolonged poor intake prior to hospital admit < 75% for >1 month....'
Based on the above information and your assessment, which of the following most accurately represents the patient's nutritional status?
Severe Protein Calorie Malnutrition
Other (please specify)
[place] Criteria (ACP Hospitalist 2017)
2 or more criteria must be present for either
non severe or severe malnutrition
Note that the criteria differs related to the
presence of an acute or chronic illness
Chronic Illness
Energy Intake Non Severe: <75% for >1 month
Severe: <75% for >1 month
Weight Loss Non Severe: 5% over 1 month
7.5% over 3 months
10% over 6 months
20% over 1 year
Severe: >5% over 1 month
>7.5% over 3 months
>10% over 6 months
>20% over 1 year
Body Fat Non Severe: Mild Loss
Severe: Severe Loss
Muscle Mass Non Severe: Mild Loss
Severe: Severe Loss
Fluid Accumulation Non Severe: Mild Accumulation
Severe: Moderate to severe
accumulation
Reduced [employer] Engineer Strength Non Severe: N/A
Severe: Measurably reduced
Additional criteria that can be used to Determine if Mild or Moderate Malnutrition (Merck Manual 2018)
Use of terms such as suspected, likely, concern for, or probable (associated with a specific diagnosis that is being evaluated, monitored, or treated as if it exists) are acceptable and can be coded in the inpatient setting, when documented at the
time of discharge.
Thank you,
Dominique Ram RN, BSN
CDI Specialist
[place] [facility]
Please use your independent medical judgment in providing your response.
--- NOTE | 2025-08-13 16:19 | W.PN.URO.CBU ---
Today's Communication / Plan
-
per hospitalist
Assessment / Plan
-
improving no obvios obstrucion gn b in urine blood cxs neg For now await cxs and cotinue iv abs
Diagnosis
-
Date of Service: August 13, 2025
-
Patient Diagnosis:
Post Op Day:
LEFT PYELONEPHRITIS S/P ILIEAL SUBSTITUTIONLEFT URETER S/P AUG 04 STENT REMOVAL:
Post Op Day:
Subjective
-
improving
Objective
-
Vital Signs
Temp Pulse Resp BP Pulse Ox
97.9 F 72 18 108/64 97
08/13/25 15:14 08/13/25 15:14 08/13/25 15:14 08/13/25 15:14 08/13/25 15:14
Intake and Output
08/12/25 08/13/25 08/14/25
06:59 06:59 06:59
Intake Total 1200 / 1200
Balance 1200 / 1200
Intake:
Oral fluids 1200 / 1200
Other:
Number of approximated MODERATE 2
amounts of urine
Laboratory Results
08/13/25 05:16
08/13/25 05:16
Review of Systems
-
Constitutional: Fever
: Urgency
Physical Exam
-
General - well developed, well nourished, no acute distress
Chest - clear bilaterally
Abdomen - soft, non-tender, positive bowel sounds, no CVAT, no incisional pain or distention
Genitalia - normal
Rectal - normal
Skin - warm & dry with no rash
Neuro - AOx3, no motor deficits
Extremities - no clubbing, no cyanosis, no edema
Incision - clean, dry
Dressing - clean, dry, intact
Counseling
-
no gu inteventions
Care Review
Data Reviewed
Discussed with: Hospitalist, Nursing and Family
CT Scan: Image Pers Reviewed
[2025-08-13] MEDS: FLOMAX 0.4 MG PO (21:09)
[2025-08-13] MEDS: TESSALON PERLES 100 MG PO (21:13)
[2025-08-13 23:45] VITALS: BP 113/69
[2025-08-14] MEDS: ZOSYN 50 IV ×2 (02:59→07:45)
[2025-08-14 05:38] LABS: Hematocrit 30.4 % (39.0-52.0); Hemoglobin 9.5 g/dL (13.0-18.0); Mean Corp Hgb Conc. 31.3 g/dL (33.0-37.0); Mean Corpuscular Volume 93.3 fL (80.0-94.0); Nucleated Red Blood Cells % 0 % (-); Platelet Count 337 10^3/uL (130-400); Red Cell Dist. Width 12.4 % (11.5-14.5)
[2025-08-14 06:09] LABS: Blood Urea Nitrogen 16 mg/dl (9-20); Calcium 8.6 mg/dl (8.4-10.2); Carbon Dioxide 24 mmol/L (22-30); Chloride 104 mmol/L (98-107); Estimated Creatinine Clearance 78 ml/min; Glucose 95 mg/dl (70-99); Potassium 3.8 mmol/L (3.5-5.1); Sodium 135 mmol/L (135-145); eGFR > 60.00
--- NOTE | 2025-08-14 07:13 | PN.CDI ---
CDI
- -
CDI:
Physician Documentation Request
Admit Date: 08/12/25 04:08
Dear Doctor,
Please review the following and provide your response in the progress notes.
Clinical Indicators:
Pt admitted with UTI/Acute Pyelonephritis/Hydronephrosis
Documented in the record, ...' most relevantly recent left ureteral transplant with autologous intestinal segment at [place] s/p stenting and removal of the stent Aug 04....'
Please clarify the suspected relationship between these conditions:
Yes, UTI___ is related to/associated with/due to left ureteral transplant surgery on 08/04___.
No, UTI ___ is not related to/associated with/due to left Ureteral _left ureteral transplant surgery 08/04 __ but it is due to ___. (Please specify)
Other ( please specify)
Use of terms such as suspected, likely, concern for, or probable (associated with a specific diagnosis that is being evaluated, monitored, or treated as if it exists) are acceptable and can be coded in the inpatient setting, when documented at the
time of discharge.
Thank you,
Sangita Zimmer RN
CDI Specialist
[place] [facility]
Please use your independent medical judgment in providing your response.
[2025-08-14 07:22] VITALS: BP 110/72
[2025-08-14] MEDS: ELIQUIS 10 MG PO (07:45)
[2025-08-14] MEDS: PROTONIX 40 MG PO (07:45)
[2025-08-14] MEDS: PROSCAR 5 MG PO (07:45)
[2025-08-14] MEDS: FLUSH (NSS) 1 FLUSH IV (07:45)
--- NOTE | 2025-08-14 10:43 | W.PN.ID1 ---
Date of Service
Date of Service: August 14, 2025
Today's Communication
- start cefdinir, stop zosyn; for 10 day course 08/11-08/20
Assessment / Plan
# Complicated UTI/left pyelo
# Fever resolving
# Leukocytosis resolved
# Recent hx left ureter transplant 07/08/25
- Bcx's neg
- Ucx K oxytoca
- start cefdinir, stop zosyn; for 10 day course 08/11-08/20
#Conditions present on admission:
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
COVID19 (07/27/25)
PE/BLE DVT (08/07/25)
Meniere's
Right total hip arthroplasty 03/16/25
Chief Complaint
-: UTI
Subjective / Review of Systems
aferbrile 24 hours
no complaints
Vital Signs / Physical Exam
Vital Signs
Vital Signs
Temp Pulse Resp BP Pulse Ox
98.4 F 80 18 110/72 95
08/14/25 07:22 08/14/25 07:22 08/14/25 07:22 08/14/25 07:22 08/14/25 07:22
Physical Exam
Constitutional: No Acute Distress
Cardiovascular: Regular Rate and S1/S2; Negative Murmur or Rub
Pulmonary: Clear and Symmetric; Negative Wheezes or Rales
Gastrointestinal: Soft, Non Tender, Non Distended and Normal Bowel Sounds
Skin: Warm and Dry; Negative Rash or Jaundice
Objective Data
Lab Data
Lab Results
08/14/25 05:15
08/14/25 05:15
Estimated Creat Clear 78 ml/min 08/14/25 05:15
Lactic Acid Cancelled 08/12/25 04:45
Total Bilirubin 0.3 mg/dl (0.2-1.3) 08/12/25 00:39
AST 18 U/L (17-59) 08/12/25 00:39
ALT 20 U/L (0-50) 08/12/25 00:39
Alkaline Phosphatase 89 U/L (38-126) 08/12/25 00:39
Most recent labs reviewed.
Urine Culture Final 08/14/25
CC: 100,000 CFU/ML Klebsiella oxytoca
Organism 1 Klebsiella oxytoca
1. Klebsiella oxytoca
M.I.C. RX
--------- ---
Amoxicillin/Potas. Clavulanate <=8/4 S
Ampicillin >16 R
Ampicillin/Sulbactam 8/4 S
Aztreonam <=4 S
Cefazolin 16 R
Cefepime <=2 S
Ceftazidime <=1 S
Ceftriaxone <=1 S
Ertapenem <=0.5 S
Ciprofloxacin <=0.25 S
Gentamicin <=2 S
Meropenem <=1 S
Nitrofurantoin-Urine Only <=32 S
Piperacillin/Tazobactam <=8 S
Tetracycline <=4 S
Tobramycin <=2 S
Trimethoprim/Sulfamethoxazole <=2/38 S
Micro Results:
08/12/25 00:39 Urine Culture - Final
Urine Klebsiella oxytoca
08/12/25 01:00 Blood Culture - Preliminary
Blood/Venous No Growth in 48 hours- Final report to follow
08/12/25 00:39 Blood Culture - Preliminary
Blood/Venous No Growth in 48 hours- Final report to follow
08/12/25 00:39 Influenza Types A & B (JOYA) - Final
Nasal Swab Negative for Influenza A & B, NAAT
Negative results must be combined with clinical observations
and patient history.
Nucleic Acid Amplification test (NAAT)performed on the
[employer] platform.
08/12/25 CT a/p: New mild left hydronephrosis, wall thickening and enhancement of the left collecting system suggesting urinary tract infection. New postsurgical change of the left ureter with reimplantation along the anterior left bladder. Tiny
suspected postoperative seroma along the anterior left psoas muscle. Severe left hydroureter. New.
[2025-08-14] MEDS: OMNICEF 300 MG PO (11:46)
--- NOTE | 2025-08-14 11:57 | W.DS.TRANS ---
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
-
Discharge Instructions:
Discharge Diagnosis/Procedures Complicated UTI
DVT, PE
Diet Regular
Instructions:
Stand-Alone Forms:
Changes to Home Medications: Yes
Discharge Medications:
DC Medications w/original date entered in [employer]
polyethylene glycol 3350 17 gram oral powder packet (Miralax) 17 g PO DAILY Constipation 03/21/25
finasteride 5 mg tablet 5 mg PO DAILY #30 tabs 03/24/25
tamsulosin 0.4 mg capsule 0.4 mg PO HS #30 caps 03/24/25
fluticasone propionate 50 mcg/actuation nasal spray,suspension 1 spray intranasal DAILY Congestion 04/29/25
methylcellulose (with sugar) oral powder packet 1 ea PO DAILY PRN bowel movement 04/29/25
pantoprazole 40 mg tablet,delayed release (Protonix) 40 mg PO BID GERD 04/29/25
benzonatate 100 mg capsule 100 mg PO BID PRN Cough 5 days #10 caps 07/27/25
acetaminophen 500 mg tablet 1,000 mg PO TID PRN pain 08/07/25
diphenhydramine HCl 25 mg capsule (Benadryl) 25 mg PO HS PRN sleep 08/07/25
apixaban 5 mg tablet (Eliquis) 5 mg PO BID #30 tabs 08/14/25
apixaban 5 mg tablet (Eliquis) 10 mg (2 x 5 mg) PO BID #30 tabs 08/14/25
cefdinir 300 mg capsule 300 mg PO Q12 #14 caps 08/14/25
Home Medication Changes
Antibiotics thorough 08/20
Pending Results: No
--- NOTE | 2025-08-14 12:42 | W.PN.URO.CBU ---
Today's Communication / Plan
-
per hospialist
Assessment / Plan
-
improving no obvios obstrucion gn b in urine blood cxs neg will await i to transition to po abs i am hap[py rto folow as outptient so lae provide ur cx requst and hav ehimpeform 2 - 4 weeks afte rpo abs stop i discussed this with t
whoexpressed understanding also ther is a question which i will leave to ID if bhe needs post tx suppession for month
Diagnosis
-
Date of Service: August 14, 2025
-
Patient Diagnosis:
Post Op Day:
Patient Diagnosis:
Post Op Day:
LEFT PYELONEPHRITIS S/P ILIEAL SUBSTITUTIONLEFT URETER S/P AUG 04 STENT REMOVAL:
Post Op Day:
Subjective
-
much improved
Objective
-
Vital Signs
Temp Pulse Resp BP Pulse Ox
98.4 F 80 18 110/72 95
08/14/25 07:22 08/14/25 07:22 08/14/25 07:22 08/14/25 07:22 08/14/25 07:22
Intake and Output
08/13/25 08/14/25 08/15/25
06:59 06:59 06:59
Intake Total 1200 / 1200 0 / 1780
Balance 1200 / 1200 0 / 1780
Intake:
Oral fluids 1200 / 1200 1680 / 1680
IV piggybacks 100 / 100
Other:
Number of approximated MODERATE 2 3
amounts of urine
Laboratory Results
08/14/25 05:15
08/14/25 05:15
Review of Systems
-
: No Symptoms
Physical Exam
-
General - well developed, well nourished, no acute distress
Chest - clear bilaterally
Abdomen - soft, non-tender, positive bowel sounds, no CVAT, no incisional pain or distention
Genitalia - normal
Rectal - normal
Skin - warm & dry with no rash
Neuro - AOx3, no motor deficits
Extremities - no clubbing, no cyanosis, no edema
Incision - clean, dry
Dressing - clean, dry, intact
Counseling
-
per hospitalist
Care Review
Data Reviewed
Discussed with: Hospitalist
--- NOTE | 2025-08-14 13:02 | CM ---
Pt is cleared for discharge to home today with his .
Plan: Discharge to home with no needs per patient and . Transport via car.
== END 2025-08-14 13:28 | disposition home or self-care (01) | DRG 699 ==
LOC: 3 WEST ACU 04:08
PROVIDERS: ADMITTING PHYSICIAN Internal Medicine; ATTENDING PHYSICIAN Internal Medicine; CONSULT PHYSICIAN Specialist; EMERGENCY PHYSICIAN Emergency Medicine; FAMILY PHYSICIAN Internal Medicine Cardiovascular Disease; OTHER PHYSICIAN Internal Medicine Infectious Disease
DX: T83.598A Infection and inflammatory reaction due to other prosthetic device, implant and graft in urinary system, initial encounter (principal); M96.843 Postprocedural seroma of a musculoskeletal structure following other procedure; N13.6 Pyonephrosis; N40.0 Benign prostatic hyperplasia without lower urinary tract symptoms; B96.89 Other specified bacterial agents as the cause of diseases classified elsewhere; Y83.2 Surgical operation with anastomosis, bypass or graft as the cause of abnormal reaction of the patient, or of later complication, without mention of misadventure at the time of the procedure; Y92.9 Unspecified place or not applicable; Z96.641 Presence of right artificial hip joint; Z86.718 Personal history of other venous thrombosis and embolism; Z87.442 Personal history of urinary calculi; Z86.711 Personal history of pulmonary embolism; Z79.01 Long term (current) use of anticoagulants; Z86.16 Personal history of COVID-19; Z82.5 Family history of asthma and other chronic lower respiratory diseases; Z88.6 Allergy status to analgesic agent; Z87.11 Personal history of peptic ulcer disease; Z68.24 Body mass index [BMI] 24.0-24.9, adult
CPT/HCPCS: 74177; 80048; 80053; 81003; 81015; 83605; 85025; 85027; 87040; 87077; 87086; 87186; 87502; 96361; 96365; 96366; 96367; 99291; Q9967

== ENCOUNTER → 2025-08-26 09:49 | Outpatient (REF) | payer BC, SELFPAY | LOC: HWRCS 09:49 | PROVIDERS: ATTENDING PHYSICIAN Family Medicine | DX: I26.99 Other pulmonary embolism without acute cor pulmonale (principal); U09.9 Post COVID-19 condition, unspecified | CPT/HCPCS: 93306 ==

== ENCOUNTER → 2025-09-01 14:25 | Outpatient (REF) | payer BC, SELFPAY ==
[2025-09-01 18:14] LABS: Urine Character Clear (Clear)
[2025-09-01 18:22] LABS: Urine Red Blood Cell 0-2 /HPF (0-2); Urine Squamous Cell 0-2 /LPF (Few); Urine White Cell 16-20 /HPF (0-5)
== END ==
LOC: CLAB 14:25
PROVIDERS: ATTENDING PHYSICIAN Specialist
DX: N39.0 Urinary tract infection, site not specified (principal)
CPT/HCPCS: 81003; 81015; 87086